=== PATIENT | female | born 1970 | race African-American/Black ===

== ENCOUNTER 2018-11-24 08:34 | Inpatient (IN) | payer OTHER ==
[2018-11-24 09:14] VITALS: BMI 28.8
--- NOTE | 2018-11-24 09:48 | HP ---
CIWA Score Nausea/Vomitin-Mild Nausea/No Vomiting Muscle Tremors: 2 Anxiety: 1-Mildly Anxious Agitation: 0-Normal Activity Paroxysmal Sweats: No Perspiration Orientation: 0-Oriented Tacttile Disturbances: 0-None Auditory Disturbances: 0-None Visual Disturbances: 0-None Headache: 4-Moderately Severe CIWA-Ar Total Score: 8 - Admission Criteria OASAS Guidelines: Admission for Medically Managed Detox: Requires at least one of the followin. CIWA greater than 12 2. Seizures within the past 24 hours 3. Delirium tremens within the past 24 hours 4. Hallucinations within the past 24 hours 5. Acute intervention needed for co occurring medical disorder 6. Acute intervention needed for co occurring psychiatric disorder 7. Severe withdrawal that cannot be handled at a lower level of care (continued vomiting, continued diarrhea, abnormal vital signs) requiring intravenous medication and/or fluids 8. Admission ROS [facility] Chief Complaint: seeking detox from alcohol and cocaine Allergies/Adverse Reactions: Allergies Allergy/AdvReac Type Severity Reaction Status Date / Time No Known Allergies Allergy Verified 12/18/15 15:34 History of Present Illness: 48 y/o/f here seeking help for alcohol and cocaine use. She was last in rehab in October 2015 and states she was able to stay clean for 6 months before relapsing. She drinks 6 cans of beer daily throughout her day. Her last drink was this morning before arriving here. She uses 30 dollars of cocaine per week and uses it by smoking it. She has been smoking a pack a day for 29 years. She denies any heroin or other illicit drug use. She is currently unemployed and living with a friend who gives her money for cocaine and alcohol. She denies any significant medical history or past surgical history. She states was taking Seroquel to help her sleep but has not used it in the past few months. She states she would like to complete detox here and stay for rehab as well. She denies any history of seizures or blackouts. - Ebola screening Have you traveled outside of the country in the last 21 days: No (N) Have you had contact with anyone from an Ebola affected area: No Do you have a fever: No - Review of Systems EENT: reports: No Symptoms Reported Respiratory: reports: No Symptoms reported Cardiac: reports: No Symptoms Reported GI: reports: Nausea : reports: No Symptoms Reported Musculoskeletal: reports: Back Pain Integumentary: reports: No Symptoms Reported Neuro: reports: Headache Endocrine: reports: No Symptoms Reported Hematology: reports: No Symptoms Reported Psychiatric: reports: No Sypmtoms Reported Patient History - Patient Medical History Hx Anemia: No Hx Asthma: No Hx Chronic Obstructive Pulmonary Disease (COPD): No Hx Cancer: No Hx Cardiac Disorders: No Hx Congestive Heart Failure: No Hx Hypertension: No Hx Hypercholesterolemia: No Hx Pacemaker: No HX Cerebrovascular Accident: No Hx Seizures: No Hx Dementia: No Hx Diabetes: No Hx Gastrointestinal Disorders: No Hx Liver Disease: No Hx Genitourinary Disorders: No Hx Sexually Transmitted Disorders: No Hx Renal Disease (ESRD): No Hx Thyroid Disease: No Hx Human Immunodeficiency Virus (HIV): No (LAST 2014 NEGATIVE) Hx Hepatitis C: No Hx Depression: Yes (INSOMNIA) Hx Suicide Attempt: No Hx Bipolar Disorder: No Hx Schizophrenia: No - Patient Surgical History Past Surgical History: No Hx Neurologic Surgery: No Hx Cataract Extraction: No Hx Cardiac Surgery: No Hx Lung Surgery: No Hx Breast Surgery: No Hx Breast Biopsy: No Hx Abdominal Surgery: No Hx Appendectomy: No Hx Cholecystectomy: No Hx Genitourinary Surgery: No Hx Section: No Hx Orthopedic Surgery: No Anesthesia Reaction: No - PPD History Previous Implant?: Yes Documented Results: Positive w/o proof Date: 04/23/18 - Reproductive History Patient is a Female of Child Bearing Age (11 -55 yrs old): Yes Last Menstrual Period: 12/07/15 - Smoking Cessation Smoking history: Current every day smoker Have you smoked in the past 12 months: Yes Aproximately how many cigarettes per day: 20 Cigars Per Day: 0 Hx Chewing Tobacco Use: No Initiated information on smoking cessation: Yes 'Breaking Loose' booklet given: 11/24/18 - Substance & Tx. History Hx Alcohol Use: Yes Hx Substance Use: Yes Substance Use Type: Alcohol, Cocaine - Substances abused Alcohol Substance route: Oral Frequency: Daily Amount used: 6 cans of beer Age of first use: 19 Date of last use: 11/24/18 Crack Substance route: Smoking Frequency: 1-2 times per week Amount used: $30 Age of first use: 19 Date of last use: 11/23/18 Family Disease History - Family Disease History Family History: Denies Admission Physical Exam BHS - Vital Signs Vital Signs: Vital Signs - 24 hr 11/24/18 09:06 Temperature 97.4 F L Pulse Rate 92 H Respiratory 18 Rate Blood Pressure 113/79 - Physical General Appearance: Yes: Disheveled, Other (somnolent) HEENTM: Yes: EOMI, Normocephalic Respiratory: Yes: Lungs Clear, Normal Breath Sounds Neck: Yes: Supple Cardiology: Yes: Regular Rate, S1, S2, Systolic Murmur Abdominal: Yes: Normal Bowel Sounds, Non Tender, Soft Back: Yes: Vertebral Tenderness (mild midline tenderness to palpation L3-L5) Musculoskeletal: Yes: full range of Motion, Gait Steady Extremities: Yes: Normal Capillary Refill Neurological: Yes: lead welder II-XII NML intact, Fully Oriented, Motor Strength 5/5, Finger to Nose Integumentary: Yes: Dry Lymphatic: Yes: Within Normal Limits Cleared for Admission S - Detox or Rehab [facility] Level of Care: Medically Supervised 2Day Detox Regimen/Protocol: Valium Claeared for Rehab Admission: No Breathalyzer - Breathalyzer Breathalyzer: 0 Urine Drug Screen - Test Device Lot number: [id number] Expiration date: 07/21/20 - Control Is test valid?: Yes - Results Drug screen NEGATIVE: No Urine drug screen results: [facility]-Cocaine Inpatient Rehab Admission - Rehab Decision to Admit Inpatient rehab admission?: No
[2018-11-24] MEDS ORDERED: MAGNESIUM CITRATE 300 ML BOTTLE PO PRN (10:05)
[2018-11-24] MEDS ORDERED: diazePAM 5 MG TABLET PO PRN (10:05)
[2018-11-24] MEDS ORDERED: hydrOXYzine PAMOATE 25 MG CAPSULE (FP) PO PRN (10:05)
[2018-11-24] MEDS ORDERED: IBUPROFEN 400 MG TABLET (FP) PO PRN (10:05)
[2018-11-24] MEDS ORDERED: MENTHOL/PHENOL 1 EACH UD MM PRN (10:05)
[2018-11-24] MEDS ORDERED: MAG HYDROX/AL HYDROX/SIMETH 30 ML UNIT-DOSE CUP PO PRN (10:05)
[2018-11-24] MEDS ORDERED: BISMUTH SUBSALICYLATE 524 MG/30 ML UD PO PRN (10:05)
[2018-11-24] MEDS ORDERED: ACETAMINOPHEN 325 MG TABLET (FP) PO PRN (10:05)
[2018-11-24] MEDS ORDERED: MAGNESIUM HYDROX 2400MG/30ML ORAL SUSPENSION 30 ML CUP PO PRN (10:05)
--- NOTE | 2018-11-24 10:20 | PN ---
S Progress Note Note: pt here requesting detox from etoh use , claims 6 x 22 oz cans of beer daily x 5 d/week , reports tremors if not drinking , reports she starts drinking in the afternoons , current symptoms as above . cocaine use - 30 $ /week via inhalation , denies ivdu tobacco : 1 ppd ,requesting nrt w/ patch . a/p etoh abuse - Valium detox .
[2018-11-24] MEDS: NICOTINE 14 MG/24 HOURS TOPICAL PATCH TD SCH (11:00)
[2018-11-24] MEDS: ACETAMINOPHEN 325 MG TABLET (FP) PO PRN (12:07)
[2018-11-24 13:02] LABS: HEMATOCRIT 38.6 % (32.4-45.2); HEMOGLOBIN 12.3 GM/dL (10.7-15.3); MCH 27.3 pg (25.7-33.7); MEAN CELL VOLUME 85.5 fl (80-96); MEAN PLT VOLUME 7.3 fl (7.5-11.1); RBC 4.51 M/mm3 (3.60-5.2); RDW 14.9 % (11.6-15.6); WHITE BLOOD COUNT 5.2 K/mm3 (4.0-10.0)
[2018-11-24 13:08] LABS: ALBUMIN 3.5 g/dl (3.4-5.0); BILIRUBIN,TOTAL 0.3 mg/dL (0.2-1); BLOOD UREA NITROGEN 10.4 mg/dL (7-18); CALCIUM 8.3 mg/dL (8.5-10.1); CREATININE 0.8 mg/dL (0.55-1.3); POTASSIUM 3.5 mmol/L (3.5-5.1); TOT PROT 6.8 g/dl (6.4-8.2)
[2018-11-24 13:27] LABS: PLATELET COUNT 305 K/MM3 (134-434)
[2018-11-24] MEDS: diazePAM 5 MG TABLET PO SCH ×2 (14:00→22:24)
[2018-11-24] MEDS: THIAMINE HCL 100 MG TABLET (FP) PO SCH (22:24)
[2018-11-24] MEDS: MELATONIN 5 MG TABLETS PO PRN (22:24)
[2018-11-25] MEDS: diazePAM 5 MG TABLET PO SCH ×3 (05:14→22:27)
--- NOTE | 2018-11-25 10:52 | PN ---
S CIWA - CIWA Score Nausea/Vomitin Muscle Tremors: 2 Anxiety: 2 Agitation: 2 Paroxysmal Sweats: 1-Minimal Palms Moist Orientation: 0-Oriented Tacttile Disturbances: 1-Very Mild Itch/Numbness Auditory Disturbances: 1-Very Mild Visual Disturbances: 0-None Headache: 2-Mild CIWA-Ar Total Score: 13 BHS Progress Note (SOAP) Subjective: alert,irritable,anxious,interrupted sleep,interrupted sleep Objective: 11/25/18 10:48 Last Vital Signs Temp Pulse Resp BP Pulse Ox 97.2 F L 82 18 124/80 11/25/18 06:21 11/25/18 06:21 11/25/18 06:21 11/25/18 06:21 11/25/18 10:49 Laboratory Last Values WBC 5.2 K/mm3 (4.0-10.0) 11/24/18 10:30 RBC 4.51 M/mm3 (3.60-5.2) 11/24/18 10:30 Hgb 12.3 GM/dL (10.7-15.3) 11/24/18 10:30 Hct 38.6 % (32.4-45.2) 11/24/18 10:30 MCV 85.5 fl (80-96) 11/24/18 10:30 MCH 27.3 pg (25.7-33.7) 11/24/18 10:30 MCHC 32.0 g/dl (32.0-36.0) 11/24/18 10:30 RDW 14.9 % (11.6-15.6) 11/24/18 10:30 Plt Count 305 K/MM3 (134-434) 11/24/18 10:30 MPV 7.3 fl (7.5-11.1) L 11/24/18 10:30 Sodium 141 mmol/L (136-145) 11/24/18 10:30 Potassium 3.5 mmol/L (3.5-5.1) 11/24/18 10:30 Chloride 108 mmol/L (98-107) H 11/24/18 10:30 Carbon Dioxide 29 mmol/L (21-32) 11/24/18 10:30 Anion Gap 5 MMOL/L (8-16) L 11/24/18 10:30 BUN 10.4 mg/dL (7-18) 11/24/18 10:30 Creatinine 0.8 mg/dL (0.55-1.3) 11/24/18 10:30 Est GFR (CKD-EPI)AfAm 101.75 11/24/18 10:30 Est GFR (CKD-EPI)NonAf 87.79 11/24/18 10:30 Random Glucose 120 mg/dL (74-106) H 11/24/18 10:30 Calcium 8.3 mg/dL (8.5-10.1) L 11/24/18 10:30 Total Bilirubin 0.3 mg/dL (0.2-1) 11/24/18 10:30 AST 9 U/L (15-37) L 11/24/18 10:30 ALT 19 U/L (13-61) 11/24/18 10:30 Alkaline Phosphatase 64 U/L (45-117) 11/24/18 10:30 Total Protein 6.8 g/dl (6.4-8.2) 11/24/18 10:30 Albumin 3.5 g/dl (3.4-5.0) 11/24/18 10:30 POC Urine HCG, Qual Negative 11/24/18 09:28 RPR Titer Nonreactive (NONREACTIVE) 11/24/18 10:30 HIV 1&2 Antibody Screen Negative 11/24/18 10:30 HIV P24 Antigen Negative 11/24/18 10:30 Assessment: 11/25/18 10:51 withdrawal symptom Plan: continue detox,initial glucose is 120,fasting glucose in am
[2018-11-25] MEDS: NICOTINE 14 MG/24 HOURS TOPICAL PATCH TD SCH (10:57)
[2018-11-25] MEDS: PRENATAL VITAMINS W/ FOLIC ACID TABLET (FP) PO SCH (10:57)
[2018-11-25] MEDS: ACETAMINOPHEN 325 MG TABLET (FP) PO PRN ×2 (11:00→22:27)
[2018-11-25] MEDS: THIAMINE HCL 100 MG TABLET (FP) PO SCH (22:27)
[2018-11-25] MEDS: MELATONIN 5 MG TABLETS PO PRN (22:27)
[2018-11-26] MEDS: diazePAM 5 MG TABLET PO SCH ×2 (06:01→17:09)
[2018-11-26] MEDS: ACETAMINOPHEN 325 MG TABLET (FP) PO PRN (06:02)
--- NOTE | 2018-11-26 09:52 | PN ---
S CIWA - CIWA Score Nausea/Vomitin-No Nausea/No Vomiting Muscle Tremors: None Anxiety: 2 Agitation: 0-Normal Activity Paroxysmal Sweats: 3 Orientation: 0-Oriented Tacttile Disturbances: 0-None Auditory Disturbances: 0-None Visual Disturbances: 0-None Headache: 2-Mild CIWA-Ar Total Score: 7 S Progress Note (SOAP) Subjective: c/o sweats, headache, and anxiety. Objective: 11/26/18 09:50 Vital Signs 11/26/18 11/26/18 11/26/18 03:30 07:40 09:12 Temperature 97.5 F L 96.8 F L Pulse Rate 84 84 Respiratory 18 18 18 Rate Blood Pressure 112/70 131/83 Lab Results WBC 5.2 K/mm3 (4.0-10.0) 11/24/18 10:30 RBC 4.51 M/mm3 (3.60-5.2) 11/24/18 10:30 Hgb 12.3 GM/dL (10.7-15.3) 11/24/18 10:30 Hct 38.6 % (32.4-45.2) 11/24/18 10:30 MCV 85.5 fl (80-96) 11/24/18 10:30 MCHC 32.0 g/dl (32.0-36.0) 11/24/18 10:30 RDW 14.9 % (11.6-15.6) 11/24/18 10:30 Plt Count 305 K/MM3 (134-434) 11/24/18 10:30 Sodium 141 mmol/L (136-145) 11/24/18 10:30 Potassium 3.5 mmol/L (3.5-5.1) 11/24/18 10:30 Chloride 108 mmol/L (98-107) H 11/24/18 10:30 Carbon Dioxide 29 mmol/L (21-32) 11/24/18 10:30 Anion Gap 5 MMOL/L (8-16) L 11/24/18 10:30 BUN 10.4 mg/dL (7-18) 11/24/18 10:30 Creatinine 0.8 mg/dL (0.55-1.3) 11/24/18 10:30 Random Glucose 120 mg/dL (74-106) H 11/24/18 10:30 Calcium 8.3 mg/dL (8.5-10.1) L 11/24/18 10:30 Labs noted. Assessment: 11/26/18 09:50 AOX3, in no acute respiratory distress. Full ROM, ambulating in the unit. Mild withdrawal symptoms Plan: continue detox. increase fluids.
[2018-11-26] MEDS: NICOTINE 14 MG/24 HOURS TOPICAL PATCH TD SCH (10:27)
[2018-11-26] MEDS: PRENATAL VITAMINS W/ FOLIC ACID TABLET (FP) PO SCH (10:27)
[2018-11-26] MEDS: MELATONIN 5 MG TABLETS PO PRN (22:53)
[2018-11-26] MEDS: THIAMINE HCL 100 MG TABLET (FP) PO SCH (22:53)
[2018-11-27] MEDS ORDERED: diazePAM 5 MG TABLET PO ONE (06:00)
[2018-11-27 09:10] VITALS: BP 150/100; PULSE 91; TEMP 98.2
[2018-11-27] MEDS: NICOTINE 14 MG/24 HOURS TOPICAL PATCH TD SCH (10:08)
[2018-11-27] MEDS: PRENATAL VITAMINS W/ FOLIC ACID TABLET (FP) PO SCH (10:08)
--- NOTE | 2018-11-27 13:46 | DS ---
[facility] Detox Discharge Summary Admission Date: 11/24/18 Discharge Date: 11/27/18 - History Present History: Alcohol Dependence, Cocaine Dependence Additional Comments: PATIENT GOING TO [facility] ([facility]) FOR AFTERCARE. PATIENT WAS DISCHARGED FROM DETOX UNIT TO BE TAKEN OVER TO REHAB UNIT IN STABLE MEDICAL CONDITION. Pertinent Past History: Depression, Insomnia, Nicotine Dependence. - Physical Exam Results Vital Signs: Vital Signs Temperature 98.2 F 11/27/18 09:09 Pulse Rate 91 H 11/27/18 09:09 Respiratory Rate 14 11/27/18 09:09 Blood Pressure 150/100 11/27/18 09:09 O2 Sat by Pulse Oximetry (%) Pertinent Admission Physical Exam Findings: WITHDRAWAL SYMPTOMS. Laboratory Tests 11/24/18 11/24/18 11/24/18 09:28 10:30 10:30 WBC 5.2 RBC 4.51 Hgb 12.3 Hct 38.6 MCV 85.5 MCH 27.3 MCHC 32.0 RDW 14.9 Plt Count 305 MPV 7.3 L Sodium 141 Potassium 3.5 Chloride 108 H Carbon Dioxide 29 Anion Gap 5 L BUN 10.4 Creatinine 0.8 Est GFR (CKD-EPI)AfAm 101.75 Est GFR (CKD-EPI)NonAf 87.79 Random Glucose 120 H Fasting Glucose Calcium 8.3 L Total Bilirubin 0.3 AST 9 L ALT 19 Alkaline Phosphatase 64 Total Protein 6.8 Albumin 3.5 POC Urine HCG, Qual Negative RPR Titer HIV 1&2 Antibody Screen HIV P24 Antigen 11/24/18 11/24/18 11/26/18 10:30 10:30 08:00 WBC RBC Hgb Hct MCV MCH MCHC RDW Plt Count MPV Sodium Potassium Chloride Carbon Dioxide Anion Gap BUN Creatinine Est GFR (CKD-EPI)AfAm Est GFR (CKD-EPI)NonAf Random Glucose Fasting Glucose 118 H Calcium Total Bilirubin AST ALT Alkaline Phosphatase Total Protein Albumin POC Urine HCG, Qual RPR Titer Nonreactive HIV 1&2 Antibody Screen Negative HIV P24 Antigen Negative LABS NOTED. - Treatment Hospital Course: Detox Protocol Followed, Detoxed Safely, Responded well, Discharged Condition Good, Rehab Referral Accepted Patient has Accepted a Rehab Referral to: [facility] ([facility] - Medication Discharge Medications: Ambulatory Orders NK [No Known Home Medication] 11/24/18 - Diagnosis (1) Cocaine dependence, uncomplicated Current Visit: Yes Status: Acute (2) Alcohol dependence with uncomplicated withdrawal Current Visit: Yes Status: Acute (3) Nicotine dependence Current Visit: Yes Status: Chronic Qualifiers: Nicotine product type: cigarettes Substance use status: uncomplicated Qualified Code(s): F17.210 - Nicotine dependence, cigarettes, uncomplicated - AMA Did Patient Leave Against Medical Advice: No
== END 2018-11-27 12:15 | disposition other institution (70) | DRG 774 ==
LOC: YASAS 08:34 → Y6N 10:19
PROVIDERS: ADMIT Surgery; ATTEND Surgery
PROC: HZ2ZZZZ Detoxification Services for Substance Abuse Treatment (ICD-10-PCS; principal; 2018-11-24)
DX: F10.230 Alcohol dependence with withdrawal, uncomplicated (principal); F14.20 Cocaine dependence, uncomplicated; F17.210 Nicotine dependence, cigarettes, uncomplicated; F32.9 Major depressive disorder, single episode, unspecified; G47.00 Insomnia, unspecified
CPT/HCPCS: 36415; 71046-TC-FY; 80053; 81025; 82947; 85027; 86593; 87389

== ENCOUNTER 2018-11-27 11:07 | Inpatient (IN) | payer OTHER ==
[2018-11-27] MEDS ORDERED: MAGNESIUM CITRATE 300 ML BOTTLE PO PRN (13:47)
[2018-11-27] MEDS ORDERED: MAGNESIUM HYDROX 2400MG/30ML ORAL SUSPENSION 30 ML CUP PO PRN (13:47)
[2018-11-27] MEDS ORDERED: ACETAMINOPHEN 325 MG TABLET (FP) PO PRN (13:47)
[2018-11-27] MEDS ORDERED: MENTHOL/PHENOL 1 EACH UD MM PRN (13:47)
[2018-11-27] MEDS ORDERED: guaiFENesin 200 MG/10 ML 10 ML UNIT-DOSE CUPS PO PRN (13:47)
[2018-11-27] MEDS ORDERED: P-EPHED 60MG/TRIPROLIDI 2.5MG TABLET PO PRN (13:47)
[2018-11-27] MEDS ORDERED: LOPERAMIDE HCL 2 MG CAPSULE PO PRN (13:47)
--- NOTE | 2018-11-27 13:52 | HP ---
[facility] Rehab Assess/Revision - Admission History Admitted to Rehab from: [facility] Date of Admission to Rehab: 11/27/2018 - Vital signs Vital Signs: Vital Signs Period Temp Pulse Resp BP Sys/Metcalf Pulse Ox Last 24 Hr 97.7 F 87 18 121/79 - Findings Detox History & Physical reviewed: Yes Concur with findings: Yes Comments/Additional Findings: PATIENT'S MEDICAL / MEDICATION HISTORY REVIEWED PRIOR TO DISCHARGE FROM DETOX UNIT. BGM ACBK X READINGS ORDERED FOR FIRST THREE DAYS OF REHAB ADMISSION STAY FOR ELEVATED ADMISSION RANDOM GLUCOSE AND FOR SUBSEQUENT FASTINB GLUCOSE LEVELS NOTED WHILE PATIENT WAS ADMITTED FOR DETOX. PATIENT WAS DISCHARGED FROM DETOX UNIT TO BE TAKEN OVER TO REHAB UNIT IN STABLE MEDICAL CONDITION. Inpatient Rehab Admission - Rehab Decision to Admit Inpatient rehab admission?: Yes - Initial Determination Are CD services needed?: Yes Free of communicable disease: Yes Not in need of hospitalization: Yes - Rehab Admission Criteria Previous failed treatment: Yes Poor recovery environment: Yes Comorbidities: No Lacks judgement: No Patient is meeting Inpatient Rehab admission criteria:: Yes
[2018-11-27] MEDS: THIAMINE HCL 100 MG TABLET (FP) PO SCH (21:30)
[2018-11-27] MEDS: MELATONIN 5 MG TABLETS PO PRN (21:30)
[2018-11-28] MEDS: PRENATAL VITAMINS W/ FOLIC ACID TABLET (FP) PO SCH (09:40)
[2018-11-28] MEDS: NICOTINE 14 MG/24 HOURS TOPICAL PATCH TD SCH (09:41)
[2018-11-28] MEDS ORDERED: PT OWN MED DRAWER 7, Y5N ONE (09:49)
[2018-11-28] MEDS: MAG HYDROX/AL HYDROX/SIMETH 30 ML UNIT-DOSE CUP PO PRN (17:02)
[2018-11-28] MEDS: THIAMINE HCL 100 MG TABLET (FP) PO SCH (21:24)
[2018-11-28] MEDS: MELATONIN 5 MG TABLETS PO PRN (21:24)
[2018-11-29] MEDS: NICOTINE 14 MG/24 HOURS TOPICAL PATCH TD SCH (09:42)
[2018-11-29] MEDS: PRENATAL VITAMINS W/ FOLIC ACID TABLET (FP) PO SCH (09:42)
[2018-11-29] MEDS: MAG HYDROX/AL HYDROX/SIMETH 30 ML UNIT-DOSE CUP PO PRN (19:16)
[2018-11-29] MEDS: THIAMINE HCL 100 MG TABLET (FP) PO SCH (21:25)
[2018-11-29] MEDS: MELATONIN 5 MG TABLETS PO PRN (21:25)
[2018-11-29] MEDS ORDERED: PT OWN MED DRAWER 7, Y5N ONE (23:51)
[2018-11-30] MEDS: NICOTINE 14 MG/24 HOURS TOPICAL PATCH TD SCH (09:59)
[2018-11-30] MEDS: PRENATAL VITAMINS W/ FOLIC ACID TABLET (FP) PO SCH (09:59)
[2018-11-30] MEDS: MAG HYDROX/AL HYDROX/SIMETH 30 ML UNIT-DOSE CUP PO PRN (18:09)
[2018-11-30] MEDS: THIAMINE HCL 100 MG TABLET (FP) PO SCH (21:11)
[2018-11-30] MEDS: MELATONIN 5 MG TABLETS PO PRN (21:13)
[2018-12-01] MEDS: PRENATAL VITAMINS W/ FOLIC ACID TABLET (FP) PO SCH (09:08)
[2018-12-01] MEDS: NICOTINE 14 MG/24 HOURS TOPICAL PATCH TD SCH (09:09)
--- NOTE | 2018-12-01 12:04 | CONSULT ---
[facility] Psychiatric Consult - Data Date of interview: 12/01/18 Admission source: 6N Identifying data: Ms Mcnair is a 48 years old single Black female, unemployed receiving SSI, domiciled seeking rehab treatment for alcohol and cocaine Substance Abuse History: Reports history of alcohol and crack cocaine use. Refer to addiction counselor's summary for further information Medical History: Significant for bronchial asthma and history of PPD+ . Smokes cigarettes 1 ppd Psychiatric History: Reports first psychiatric contact was in 2009 when she was admitted to [facility] due to severe depression, mood instability, auditory hallucinations in the context of substance use. She was diagnosed with Schizoaffective disorder and tried on Seroquel and Risperidone. She reports [address] [facility] and mostly recently in 2011 at [facility] for auditory hallucinations and paranoid delusions. She currently receives outpatient psychiatric tretment via [facility] team and she is prescribed Invega Sustena 234 mg IM on a monthly injection. RN Pamela Hall left a voice message to patient's counselor on this unit that patient was past due to receive the medication(due on 11/23/18). Denies previous suicidal atempt. At present, denies experiencing psychotic, manic symptoms, S/H ideations. Hwever , she reports feeling sad and sleeing poorly. Physical/Sexual Abuse/Trauma History: Denies history of emotional, physical or sexual abuse as well as DV relationship Additional Comment: Denies criminal history Mental Status Exam - Mental Status Exam Alert and Oriented to: Time, Place, Person Cognitive Function: Fair Patient Appearance: Well Groomed Mood: Sad Affect: Appropriate Patient Behavior: Cooperative Voice Loudness: Normal Thought Process: Intact, Goal Oriented Hallucinations: Denies Suicidal Ideation: Denies Homicidal Ideation: Denies Insight/Judgement: Poor Sleep: Poorly Appetite: Good Muscle strength/Tone: Normal Gait/Station: Normal Psychiatric Findings - Problem List ([place] 1, 2,3) (1) Schizoaffective disorder Current Visit: No Status: Chronic (2) Substance-induced sleep disorder Current Visit: Yes Status: Acute (3) Alcohol dependence Current Visit: No Status: Chronic (4) Cocaine dependence Current Visit: No Status: Chronic (5) Nicotine dependence Current Visit: No Status: Chronic Qualifiers: Nicotine product type: cigarettes Substance use status: uncomplicated Qualified Code(s): F17.210 - Nicotine dependence, cigarettes, uncomplicated (6) Positive PPD Current Visit: No Status: Resolved - Initial Treatment Plan Initial Treatment Plan: 1) Pamela Hall, ACT team RN [phone] and left message that Invwilliam anguianoena is not formulary in this facility and the only way for patient to receive it is for ACT team to bring it. in the mean time, patient will be started on Risperdal 2 mg po BID. 2) Continue inpatient rehabilitation
[2018-12-01] MEDS: MAG HYDROX/AL HYDROX/SIMETH 30 ML UNIT-DOSE CUP PO PRN (19:07)
[2018-12-01] MEDS: THIAMINE HCL 100 MG TABLET (FP) PO SCH (21:46)
[2018-12-01] MEDS: risperiDONE 2 MG TABLET PO SCH (21:46)
[2018-12-01] MEDS ORDERED: MELATONIN 5 MG TABLETS PO SCH (22:00)
[2018-12-01] MEDS ORDERED: PT OWN MED DRAWER 7, Y5N ONE (22:10)
[2018-12-02 07:16] VITALS: BP 102/71; PULSE 99; TEMP 98.3
--- NOTE | 2018-12-02 08:22 | PN ---
[facility] Progress Note Note: Talked to Pamela Hall RN nursing staff on patient's ACT team regarding Invega Sustena injection which was due on 11/23/18. She told job specification writer that she will be able to bring the injection on Wednesday12/05/18.
[2018-12-02] MEDS: NICOTINE 14 MG/24 HOURS TOPICAL PATCH TD SCH (10:27)
[2018-12-02] MEDS: risperiDONE 2 MG TABLET PO SCH (10:27)
[2018-12-02] MEDS: PRENATAL VITAMINS W/ FOLIC ACID TABLET (FP) PO SCH (10:27)
--- NOTE | 2018-12-02 16:01 | PN ---
[facility] Progress Note Note: Patient seen for request to sign out AMA. Patient admitted to rehab for ETOH/ cocaine dependence. Patient stated to provider " I want to go home. I've had enough". Patient encouraged to complete rehab and explained risk factors of relapse and possible overdose. Patient refused to stay in treatment and stated she will follow up with [facility] for outpatient treatment referral. Patient is alert and medically stable. Denies SI/HI. Patient encouraged to attend group meetings at AA/NA. Vital Signs Temperature 98.3 F 12/02/18 07:16 Pulse Rate 99 H 12/02/18 07:16 Respiratory Rate 18 12/02/18 07:16 Blood Pressure 102/71 12/02/18 07:16 O2 Sat by Pulse Oximetry (%) Laboratory Tests 11/28/18 11/29/18 11/30/18 06:42 06:18 07:32 POC Glucometer 116 137 105 12/01/18 12/02/18 06:32 07:07 POC Glucometer 108 105 Ambulatory Orders NK [No Known Home Medication] 11/24/18
== END 2018-12-02 14:22 | disposition left against medical advice (07) | DRG 770 ==
LOC: YASAS 11:07 → Y3E 11:08
PROVIDERS: ADMIT Neuromusculoskeletal Medicine & OMM; ATTEND Neuromusculoskeletal Medicine & OMM
PROC: HZ42ZZZ Group Counseling for Substance Abuse Treatment, Cognitive-Behavioral (ICD-10-PCS; principal; 2018-11-27)
DX: F10.20 Alcohol dependence, uncomplicated (principal); F14.20 Cocaine dependence, uncomplicated; F17.210 Nicotine dependence, cigarettes, uncomplicated; F19.282 Other psychoactive substance dependence with psychoactive substance-induced sleep disorder; F25.9 Schizoaffective disorder, unspecified; R76.11 Nonspecific reaction to tuberculin skin test without active tuberculosis
CPT/HCPCS: 82962

== ENCOUNTER 2019-05-31 14:06 | Inpatient (IN) | payer OTHER ==
[2019-05-31 17:58] VITALS: BMI 31.9
--- NOTE | 2019-05-31 20:42 | HP ---
CIWA Score Nausea/Vomitin-Mild Nausea/No Vomiting Muscle Tremors: 3 Anxiety: 3 Agitation: 3 Paroxysmal Sweats: 2 Orientation: 0-Oriented Tacttile Disturbances: 0-None Auditory Disturbances: 0-None Visual Disturbances: 0-None Headache: 5-Severe CIWA-Ar Total Score: 17 - Admission Criteria OASAS Guidelines: Admission for Medically Managed Detox: Requires at least one of the followin. CIWA greater than 12 2. Seizures within the past 24 hours 3. Delirium tremens within the past 24 hours 4. Hallucinations within the past 24 hours 5. Acute intervention needed for co occurring medical disorder 6. Acute intervention needed for co occurring psychiatric disorder 7. Severe withdrawal that cannot be handled at a lower level of care (continued vomiting, continued diarrhea, abnormal vital signs) requiring intravenous medication and/or fluids 8. Admitting History and Physical - Past Medical History ...LMP: 06/06/16 - Smoking History Smoking history: Current every day smoker Have you smoked in the past 12 months: Yes Aproximately how many cigarettes per day: 20 - Alcohol/Substance Use Hx Alcohol Use: Yes Admission ROS [facility] Chief Complaint: Alcohol withdrawal symptoms Allergies/Adverse Reactions: Allergies Allergy/AdvReac Type Severity Reaction Status Date / Time No Known Allergies Allergy Verified 05/31/19 17:42 History of Present Illness: 48 years old female with a long history of alcohol dependence (since age 19) is seeking admission to detox. Patient has been admitted multiple times and reports insignificant period of sobriety. Her last admission at [facility] was for the period 11/24/2018 - 12/02/2018. She has medical history of asthma, chronic back pain, PPD positive and reports psych. history of schizophrenia, depression and anxiety. She denies suicidal ideation at this time. Patient is unemployed and lives at [facility] in [facility]. She denies seizures and blackouts. Exam Limitations: No Limitations - Ebola screening Have you traveled outside of the country in the last 21 days: No (N) Have you had contact with anyone from an Ebola affected area: No Do you have a fever: No - Review of Systems Constitutional: Chills, Malaise, Night Sweats, Changes in sleep EENT: reports: No Symptoms Reported Respiratory: reports: No Symptoms reported Cardiac: reports: No Symptoms Reported GI: reports: Constipated, Nausea, Poor Appetite, Poor Fluid Intake, Vomiting, Abdominal cramping : reports: No Symptoms Reported Musculoskeletal: reports: Back Pain, Joint Pain, Muscle Pain Integumentary: reports: Dryness, Flushing Neuro: reports: Headache Endocrine: reports: Flushing Hematology: reports: No Symptoms Reported Psychiatric: reports: Mood/Affect Appropiate, Orientated x3, Anxious, Depressed Other Systems: Reviewed and Negative Patient History - Patient Medical History Hx Anemia: No Hx Asthma: Yes (Albuterol) Hx Chronic Obstructive Pulmonary Disease (COPD): No Hx Cancer: No Hx Cardiac Disorders: No Hx Congestive Heart Failure: No Hx Hypertension: No Hx Hypercholesterolemia: No Hx Pacemaker: No HX Cerebrovascular Accident: No Hx Seizures: No Hx Dementia: No Hx Diabetes: No Hx Gastrointestinal Disorders: No Hx Liver Disease: No Hx Genitourinary Disorders: No Hx Sexually Transmitted Disorders: No Hx Renal Disease (ESRD): No Hx Thyroid Disease: No Hx Human Immunodeficiency Virus (HIV): No ( NEGATIVE 2014 ) Hx Hepatitis C: No Hx Depression: No Hx Suicide Attempt: No (Denies suicidal ideation aty this time) Hx Bipolar Disorder: No Hx Schizophrenia: No Other Medical History: LOW BACK PAIN, ANXIETY - Patient Surgical History Past Surgical History: No Hx Neurologic Surgery: No Hx Cataract Extraction: No Hx Cardiac Surgery: No Hx Lung Surgery: No Hx Breast Surgery: No Hx Breast Biopsy: No Hx Abdominal Surgery: No Hx Appendectomy: No Hx Cholecystectomy: No Hx Genitourinary Surgery: No Hx Section: No Hx Orthopedic Surgery: No Hx Hysterectomy: No Anesthesia Reaction: No - PPD History Previous Implant?: No (PPD POSITIVE. TREATED WITH INH) Documented Results: Positive w/proof Date: 04/23/18 PPD to be Administered?: No - Reproductive History Patient is a Female of Child Bearing Age (11 -55 yrs old): Yes Last Menstrual Period: 06/06/16 - Smoking Cessation Smoking history: Current every day smoker Have you smoked in the past 12 months: Yes Aproximately how many cigarettes per day: 20 Cigars Per Day: 0 Hx Chewing Tobacco Use: No Initiated information on smoking cessation: Yes 'Breaking Loose' booklet given: 05/31/19 - Substance & Tx. History Hx Alcohol Use: Yes Hx Substance Use: Yes Substance Use Type: Alcohol, Cocaine Hx Substance Use Treatment: Yes ([facility]) - Substances abused Alcohol Substance route: Oral Frequency: Daily Amount used: 6 cans of beers Age of first use: 19 Date of last use: 05/31/19 Crack Substance route: Smoking Frequency: 1-2 times per week Amount used: $30 Age of first use: 19 Date of last use: 05/31/19 Admission Physical Exam [facility] - Vital Signs Vital Signs: Vital Signs - 24 hr 05/31/19 17:42 Temperature 97.1 F L Pulse Rate 102 H Respiratory 18 Rate Blood Pressure 124/69 - Physical General Appearance: Yes: Moderate Distress, Tremorous, Anxious HEENTM: Yes: Nasal Congestion Respiratory: Yes: Lungs Clear, Normal Breath Sounds, No Respiratory Distress Neck: Yes: Supple Breast: Yes: Breast Exam Deferred Cardiology: Yes: Tachycardia Abdominal: Yes: Protuberent Genitourinary: Yes: Within Normal Limits Musculoskeletal: Yes: Back pain, Muscle Pain Extremities: Yes: Tremors Neurological: Yes: Alert, Normal Mood/Affect Integumentary: Yes: Warm, Other (dry skin) Lymphatic: Yes: Within Normal Limits - Diagnostic (1) Alcohol dependence with uncomplicated withdrawal Current Visit: Yes Status: Acute (2) Cocaine dependence, uncomplicated Current Visit: Yes Status: Acute (3) Nicotine dependence Current Visit: Yes Status: Chronic Qualifiers: Nicotine product type: cigarettes Substance use status: in withdrawal Qualified Code(s): F17.213 - Nicotine dependence, cigarettes, with withdrawal (4) Obesity Current Visit: Yes Status: Chronic Qualifiers: Obesity classification: adult class 1 (BMI 30 - 34.9) Serious obesity comorbidity presence: without serious comorbidity (5) Positive PPD Current Visit: Yes Status: Resolved Cleared for Admission [facility] - Detox or Rehab [facility] Level of Care: Medically Managed Detox Regimen/Protocol: Librium Breathalyzer - Breathalyzer Breathalyzer: 0 Urine Drug Screen - Test Device Lot number: [id number] Expiration date: 07/21/20 - Control Is test valid?: Yes - Results Drug screen NEGATIVE: No Urine drug screen results: [facility]OM[facility]-Cocaine Inpatient Rehab Admission - Rehab Decision to Admit Inpatient rehab admission?: No
[2019-05-31] MEDS ORDERED: NICOTINE POLACRILEX 2 MG GUM BUC PRN (21:03)
[2019-05-31] MEDS ORDERED: chlordiazePOXIDE HCL 25 MG CAPSULE PO PRN (21:03)
[2019-05-31] MEDS ORDERED: ACETAMINOPHEN 325 MG TABLET (FP) PO PRN ×2 (21:03)
[2019-05-31] MEDS ORDERED: hydrOXYzine PAMOATE 25 MG CAPSULE (FP) PO PRN (21:03)
[2019-05-31] MEDS ORDERED: MAGNESIUM CITRATE 300 ML BOTTLE PO PRN (21:03)
[2019-05-31] MEDS ORDERED: METHOCARBAMOL 500 MG TABLET PO PRN (21:03)
[2019-05-31] MEDS ORDERED: MAG HYDROX/AL HYDROX/SIMETH 30 ML UNIT-DOSE CUP PO PRN (21:03)
[2019-05-31] MEDS ORDERED: MAGNESIUM HYDROX 2400MG/30ML ORAL SUSPENSION 30 ML CUP PO PRN (21:03)
[2019-05-31] MEDS: chlordiazePOXIDE HCL 25 MG CAPSULE PO SCH (22:37)
[2019-05-31] MEDS: MELATONIN 5 MG TABLETS PO PRN (22:38)
[2019-05-31] MEDS: THIAMINE HCL 100 MG TABLET (FP) PO SCH (22:38)
[2019-06-01] MEDS: chlordiazePOXIDE HCL 25 MG CAPSULE PO SCH ×4 (06:39→22:02)
[2019-06-01] MEDS: MENTHOL/PHENOL 1 EACH UD MM PRN ×2 (09:06→22:20)
[2019-06-01] MEDS: NICOTINE 21 MG/24 HOURS TOPICAL PATCH TD SCH (10:29)
[2019-06-01] MEDS: PRENATAL VITAMINS W/ FOLIC ACID TABLET (FP) PO SCH (10:30)
[2019-06-01 10:48] LABS: HEMATOCRIT 34.5 % (32.4-45.2); HEMOGLOBIN 10.9 GM/dL (10.7-15.3); MCH 26.8 pg (25.7-33.7); MCHC 31.7 g/dl (32.0-36.0); MEAN CELL VOLUME 84.5 fl (80-96); MEAN PLT VOLUME 7.5 fl (7.5-11.1); PLATELET COUNT 335 K/MM3 (134-434); RBC 4.08 M/mm3 (3.60-5.2); RDW 15.5 % (11.6-15.6); WHITE BLOOD COUNT 4.7 K/mm3 (4.0-10.0)
[2019-06-01 10:58] LABS: BILIRUBIN,TOTAL 0.3 mg/dL (0.2-1); BLOOD UREA NITROGEN 12.9 mg/dL (7-18); CALCIUM 8.4 mg/dL (8.5-10.1); CREATININE 0.6 mg/dL (0.55-1.3); POTASSIUM 4.6 mmol/L (3.5-5.1); TOT PROT 6.1 g/dl (6.4-8.2)
--- NOTE | 2019-06-01 11:13 | PN ---
[facility] CIWA - CIWA Score Nausea/Vomitin-Mild Nausea/No Vomiting Muscle Tremors: 2 Anxiety: 2 Agitation: 0-Normal Activity Paroxysmal Sweats: 2 Orientation: 0-Oriented Tacttile Disturbances: 2-Mild Itch/Numbness/Burn Auditory Disturbances: 0-None Visual Disturbances: 0-None Headache: 1-Very Mild CIWA-Ar Total Score: 10 S Progress Note (SOAP) Subjective: c/o of interrupted sleep, nasal congestion,mid epigastric pain x2 days , reports 1010 relieved with rest Objective: 06/01/19 11:14 Vital Signs Temperature 97.7 F 06/01/19 09:09 Pulse Rate 80 06/01/19 09:09 Respiratory Rate 18 06/01/19 09:09 Blood Pressure 117/69 06/01/19 09:09 O2 Sat by Pulse Oximetry (%) Laboratory Last Values WBC 4.7 K/mm3 (4.0-10.0) 06/01/19 08:15 RBC 4.08 M/mm3 (3.60-5.2) 06/01/19 08:15 Hgb 10.9 GM/dL (10.7-15.3) 06/01/19 08:15 Hct 34.5 % (32.4-45.2) 06/01/19 08:15 MCV 84.5 fl (80-96) 06/01/19 08:15 MCH 26.8 pg (25.7-33.7) 06/01/19 08:15 MCHC 31.7 g/dl (32.0-36.0) L 06/01/19 08:15 RDW 15.5 % (11.6-15.6) 06/01/19 08:15 Plt Count 335 K/MM3 (134-434) 06/01/19 08:15 MPV 7.5 fl (7.5-11.1) 06/01/19 08:15 Sodium 140 mmol/L (136-145) 06/01/19 08:15 Potassium 4.6 mmol/L (3.5-5.1) 06/01/19 08:15 Chloride 107 mmol/L (98-107) 06/01/19 08:15 Carbon Dioxide 29 mmol/L (21-32) 06/01/19 08:15 Anion Gap 4 MMOL/L (8-16) L 06/01/19 08:15 BUN 12.9 mg/dL (7-18) 06/01/19 08:15 Creatinine 0.6 mg/dL (0.55-1.3) 06/01/19 08:15 Est GFR (CKD-EPI)AfAm 125.80 06/01/19 08:15 Est GFR (CKD-EPI)NonAf 108.54 06/01/19 08:15 Random Glucose 111 mg/dL (74-106) H 06/01/19 08:15 Calcium 8.4 mg/dL (8.5-10.1) L 06/01/19 08:15 Total Bilirubin 0.3 mg/dL (0.2-1) 06/01/19 08:15 AST 21 U/L (15-37) 06/01/19 08:15 ALT 25 U/L (13-61) 06/01/19 08:15 Alkaline Phosphatase 57 U/L (45-117) 06/01/19 08:15 Total Protein 6.1 g/dl (6.4-8.2) L 06/01/19 08:15 Albumin 3.0 g/dl (3.4-5.0) L 06/01/19 08:15 Assessment: 06/01/19 11:14 Aox3 no acute distress edentulous, no sinus tenderness s1 s2 , + murmur lungs clear through out no abdominal tenderness no lower extremity edema withdrawal midepigastric pain Plan: EKG ordered : NSR continue detox maylatan for abdominal discomfort continue to monitor for worsening symptoms
[2019-06-01] MEDS ORDERED: guaiFENesin 200 MG/10 ML 10 ML UNIT-DOSE CUPS PO PRN (11:25)
[2019-06-01] MEDS: IBUPROFEN 400 MG TABLET (FP) PO PRN ×2 (11:29→17:19)
--- NOTE | 2019-06-01 11:53 | EKG ---
Test Reason : Blood Pressure : / mmHG Vent. Rate : 078 BPM Atrial Rate : 078 BPM P-R Int : 182 ms QRS Dur : 084 ms QT Int : 410 ms P-R-T Axes : 051 044 049 degrees QTc Int : 467 ms NORMAL SINUS RHYTHM NORMAL ECG WHEN COMPARED WITH ECG OF 31-MAY-2019 23:14, NO SIGNIFICANT CHANGE WAS FOUND Confirmed by YAYA MCNEAL MD ([id number]) on 06/01/2019 11:52:50 AM Referred By: Confirmed By:YAYA MCNEAL MD
--- NOTE | 2019-06-01 11:53 | EKG ---
Test Reason : Blood Pressure : / mmHG Vent. Rate : 090 BPM Atrial Rate : 090 BPM P-R Int : 188 ms QRS Dur : 084 ms QT Int : 404 ms P-R-T Axes : 055 037 058 degrees QTc Int : 494 ms NORMAL SINUS RHYTHM MINIMAL VOLTAGE CRITERIA FOR LVH, MAY BE NORMAL VARIANT NONSPECIFIC T WAVE ABNORMALITY PROLONGED QT ABNORMAL ECG NO PREVIOUS ECGS AVAILABLE Confirmed by YAYA MCNEAL MD ([id number]) on 06/01/2019 11:52:52 AM Referred By: Confirmed By:YAYA MCNEAL MD
--- NOTE | 2019-06-01 14:03 | CONSULT ---
[facility] Psychiatric Consult - Data Date of interview: 06/01/19 Admission source: [facility] Identifying data: Patient is a 48 year old single female, mother of four, unemployed, domiciled, and is supported by [facility]. This is one of multiple admissions for patient. Patient admitted to for alcohol and cocaine dependence. Substance Abuse History: Smoking Cessation. Smoking history: Current every day smoker. Have you smoked in the past 12 months: Yes. Aproximately how many cigarettes per day: 20. Cigars Per Day: 0. Hx Chewing Tobacco Use: No. Initiated information on smoking cessation: Yes. 'Breaking Loose' booklet given : 05/31/19. - Substance & Tx. History. Hx Alcohol Use: Yes. Hx Substance Use : Yes. Substance Use Type: Alcohol, Cocaine. Hx Substance Use Treatment: Yes ( [facility]). - Substances abused. Alcohol. Substance route: Oral. Frequency: Daily. Amount used: 6 cans of beers. Age of first use: 19. Date of last use: 05/31/19. Crack. Substance route: Smoking. Frequency: 1-2 times per week. Amount used: $30. Age of first use: 19. Date of last use: 05/31/19 Medical History: Asthma Psychiatric History: Patient's first psychiatric contact was in 2010 after onset disturbances of paranoid delusions and mood instability. She was admitted to [facility], diagnosed with schizoaffective disorder and started on risperdal. Ms. Mcnair reports additional hospitalizations at [facility] secondary to paranoid delusions. She reports past outpatient treatment while living at [facility]. In 2018 patient was followed by the ACT team and was prescribed Invega Sustenna. States she is no longer followed by the ACT team and is not under psychiatric care. Patient seen by Dr. Gale in November of 2018 and was started on risperdal 2mg BID. Patient states that she has been taking seroquel 300mg HS after receiving a two month prescription from [facility] in March. Reports most recently taking seroquel last week. Patient refusing to restart risperdal despite encouragement from check writer. Patient denies history of suicide attempt. At present patient denies auditory/visual hallucination, and paranoid ideation. No psychosis noted. Physical/Sexual Abuse/Trauma History: Reports history of trauma but refuses to elaborate. Mental Status Exam - Mental Status Exam Alert and Oriented to: Time, Place, Person Cognitive Function: Good Patient Appearance: Well Groomed Mood: Withdrawn Affect: Appropriate Patient Behavior: Appropriate, Cooperative Speech Pattern: Appropriate Voice Loudness: Normal Thought Process: Goal Oriented Thought Disorder: Not Present Hallucinations: Denies Suicidal Ideation: Denies Homicidal Ideation: Denies Insight/Judgement: Poor Sleep: Poorly Appetite: Fair Muscle strength/Tone: Normal Gait/Station: Normal Psychiatric Findings - Problem List ([place] 1, 2,3) (1) Alcohol dependence with uncomplicated withdrawal Status: Acute (2) Cocaine dependence, uncomplicated Status: Acute (3) Nicotine dependence Status: Chronic Qualifiers: Nicotine product type: cigarettes Substance use status: in withdrawal Qualified Code(s): F17.213 - Nicotine dependence, cigarettes, with withdrawal (4) Substance-induced sleep disorder Status: Acute (5) Schizoaffective disorder Status: Chronic Comment: As per history, records and self-report. [facility]oll[facility]. On medications. - Initial Treatment Plan Initial Treatment Plan: Psychoeducation provided. Detoxification in progress. Will order Seroquel 200mg HS ( as per patient's request)+ Seroquel 50mg daily. Benefits and side effects discussed. Verbal consent given.
[2019-06-01] MEDS: BISMUTH SUBSALICYLATE 524 MG/30 ML UD PO PRN (18:22)
[2019-06-01] MEDS: THIAMINE HCL 100 MG TABLET (FP) PO SCH (22:02)
[2019-06-01] MEDS: QUEtiapine FUMARATE 200 MG TABLET PO SCH (22:03)
[2019-06-01] MEDS: MELATONIN 5 MG TABLETS PO PRN (22:03)
[2019-06-02] MEDS: chlordiazePOXIDE HCL 25 MG CAPSULE PO SCH ×4 (07:25→22:00)
[2019-06-02] MEDS: NICOTINE 21 MG/24 HOURS TOPICAL PATCH TD SCH (10:16)
[2019-06-02] MEDS: PRENATAL VITAMINS W/ FOLIC ACID TABLET (FP) PO SCH (10:16)
[2019-06-02] MEDS: QUEtiapine FUMARATE 50 MG TABLET PO SCH (10:16)
[2019-06-02] MEDS: IBUPROFEN 400 MG TABLET (FP) PO PRN (17:42)
[2019-06-02] MEDS: THIAMINE HCL 100 MG TABLET (FP) PO SCH (21:57)
[2019-06-02] MEDS: QUEtiapine FUMARATE 200 MG TABLET PO SCH (21:58)
[2019-06-02] MEDS: MELATONIN 5 MG TABLETS PO PRN (22:01)
[2019-06-02] MEDS: BISMUTH SUBSALICYLATE 524 MG/30 ML UD PO PRN (22:03)
[2019-06-03] MEDS ORDERED: chlordiazePOXIDE HCL 10 MG CAPSULE PO PRN
[2019-06-03] MEDS: chlordiazePOXIDE HCL 10 MG CAPSULE PO SCH ×4 (06:24→23:13)
[2019-06-03] MEDS: PRENATAL VITAMINS W/ FOLIC ACID TABLET (FP) PO SCH (10:47)
[2019-06-03] MEDS: NICOTINE 21 MG/24 HOURS TOPICAL PATCH TD SCH (10:47)
[2019-06-03] MEDS: QUEtiapine FUMARATE 50 MG TABLET PO SCH (10:49)
--- NOTE | 2019-06-03 11:51 | PN ---
[facility] CIWA - CIWA Score Nausea/Vomitin-No Nausea/No Vomiting Muscle Tremors: None Anxiety: 3 Agitation: 2 Paroxysmal Sweats: 3 Orientation: 0-Oriented Tacttile Disturbances: 0-None Auditory Disturbances: 0-None Visual Disturbances: 0-None Headache: 1-Very Mild CIWA-Ar Total Score: 9 S Progress Note (SOAP) Subjective: c/o headache, anxiety, sweats, and irritability. Objective: 06/03/19 11:51 Vital Signs 06/03/19 06/03/19 06:50 09:28 Temperature 98.3 F 98.5 F Pulse Rate 88 87 Respiratory 18 18 Rate Blood Pressure 106/74 113/81 Laboratory Last Values WBC 4.7 K/mm3 (4.0-10.0) 06/01/19 08:15 RBC 4.08 M/mm3 (3.60-5.2) 06/01/19 08:15 Hgb 10.9 GM/dL (10.7-15.3) 06/01/19 08:15 Hct 34.5 % (32.4-45.2) 06/01/19 08:15 MCV 84.5 fl (80-96) 06/01/19 08:15 MCH 26.8 pg (25.7-33.7) 06/01/19 08:15 MCHC 31.7 g/dl (32.0-36.0) L 06/01/19 08:15 RDW 15.5 % (11.6-15.6) 06/01/19 08:15 Plt Count 335 K/MM3 (134-434) 06/01/19 08:15 MPV 7.5 fl (7.5-11.1) 06/01/19 08:15 Sodium 140 mmol/L (136-145) 06/01/19 08:15 Potassium 4.6 mmol/L (3.5-5.1) 06/01/19 08:15 Chloride 107 mmol/L (98-107) 06/01/19 08:15 Carbon Dioxide 29 mmol/L (21-32) 06/01/19 08:15 Anion Gap 4 MMOL/L (8-16) L 06/01/19 08:15 BUN 12.9 mg/dL (7-18) 06/01/19 08:15 Creatinine 0.6 mg/dL (0.55-1.3) 06/01/19 08:15 Est GFR (CKD-EPI)AfAm 125.80 06/01/19 08:15 Est GFR (CKD-EPI)NonAf 108.54 06/01/19 08:15 Random Glucose 111 mg/dL (74-106) H 06/01/19 08:15 Calcium 8.4 mg/dL (8.5-10.1) L 06/01/19 08:15 Total Bilirubin 0.3 mg/dL (0.2-1) 06/01/19 08:15 AST 21 U/L (15-37) 06/01/19 08:15 ALT 25 U/L (13-61) 06/01/19 08:15 Alkaline Phosphatase 57 U/L (45-117) 06/01/19 08:15 Total Protein 6.1 g/dl (6.4-8.2) L 06/01/19 08:15 Albumin 3.0 g/dl (3.4-5.0) L 06/01/19 08:15 RPR Titer Nonreactive (NONREACTIVE) 06/01/19 08:15 Labs noted. Assessment: 06/03/19 11:51 AOX3, in no acute respiratory distress. Full ROM, ambulating in the unit. Withdrawal symptoms. Plan: continue detox.
[2019-06-03] MEDS: THIAMINE HCL 100 MG TABLET (FP) PO SCH (23:12)
[2019-06-03] MEDS: QUEtiapine FUMARATE 200 MG TABLET PO SCH (23:13)
[2019-06-04] MEDS: chlordiazePOXIDE HCL 10 MG CAPSULE PO SCH ×2 (06:25→20:47)
[2019-06-04] MEDS: QUEtiapine FUMARATE 50 MG TABLET PO SCH (11:21)
[2019-06-04] MEDS: PRENATAL VITAMINS W/ FOLIC ACID TABLET (FP) PO SCH (11:21)
[2019-06-04] MEDS: NICOTINE 21 MG/24 HOURS TOPICAL PATCH TD SCH (11:21)
--- NOTE | 2019-06-04 11:56 | PN ---
[facility] CIWA - CIWA Score Nausea/Vomitin-No Nausea/No Vomiting Muscle Tremors: 2 Anxiety: 1-Mildly Anxious Agitation: 0-Normal Activity Paroxysmal Sweats: 2 Orientation: 0-Oriented Tacttile Disturbances: 0-None Auditory Disturbances: 0-None Visual Disturbances: 0-None Headache: 0-None Present CIWA-Ar Total Score: 5 BHS Progress Note (SOAP) Subjective: 48 years old female admitted on 05/31/19 for alcohol withdrawal sx management treating with librium detox regimen feeling better from alcohol withdrawal c/o cold symptoms running nose sore throat oral pharyngeal redness no swell no discharge no lesion no lymphadenopathy zithromax 500mg po x 1 250mg po tomorrow Objective: 06/04/19 12:08 Vital Signs Temperature 96.5 F L 06/04/19 09:18 Pulse Rate 87 06/04/19 09:18 Respiratory Rate 18 06/04/19 09:18 Blood Pressure 127/80 06/04/19 09:18 O2 Sat by Pulse Oximetry (%) Laboratory Last Values WBC 4.7 K/mm3 (4.0-10.0) 06/01/19 08:15 RBC 4.08 M/mm3 (3.60-5.2) 06/01/19 08:15 Hgb 10.9 GM/dL (10.7-15.3) 06/01/19 08:15 Hct 34.5 % (32.4-45.2) 06/01/19 08:15 MCV 84.5 fl (80-96) 06/01/19 08:15 MCH 26.8 pg (25.7-33.7) 06/01/19 08:15 MCHC 31.7 g/dl (32.0-36.0) L 06/01/19 08:15 RDW 15.5 % (11.6-15.6) 06/01/19 08:15 Plt Count 335 K/MM3 (134-434) 06/01/19 08:15 MPV 7.5 fl (7.5-11.1) 06/01/19 08:15 Sodium 140 mmol/L (136-145) 06/01/19 08:15 Potassium 4.6 mmol/L (3.5-5.1) 06/01/19 08:15 Chloride 107 mmol/L (98-107) 06/01/19 08:15 Carbon Dioxide 29 mmol/L (21-32) 06/01/19 08:15 Anion Gap 4 MMOL/L (8-16) L 06/01/19 08:15 BUN 12.9 mg/dL (7-18) 06/01/19 08:15 Creatinine 0.6 mg/dL (0.55-1.3) 06/01/19 08:15 Est GFR (CKD-EPI)AfAm 125.80 06/01/19 08:15 Est GFR (CKD-EPI)NonAf 108.54 06/01/19 08:15 Random Glucose 111 mg/dL (74-106) H 06/01/19 08:15 Calcium 8.4 mg/dL (8.5-10.1) L 06/01/19 08:15 Total Bilirubin 0.3 mg/dL (0.2-1) 06/01/19 08:15 AST 21 U/L (15-37) 06/01/19 08:15 ALT 25 U/L (13-61) 06/01/19 08:15 Alkaline Phosphatase 57 U/L (45-117) 06/01/19 08:15 Total Protein 6.1 g/dl (6.4-8.2) L 06/01/19 08:15 Albumin 3.0 g/dl (3.4-5.0) L 06/01/19 08:15 RPR Titer Nonreactive (NONREACTIVE) 06/01/19 08:15 lab noted Assessment: 06/04/19 12:08 alcohol withdrawal Plan: librium regimen
[2019-06-04] MEDS ORDERED: AZITHROMYCIN 250 MG TABLET PO ONE (12:10)
--- NOTE | 2019-06-04 12:13 | PN ---
S CIWA - CIWA Score Nausea/Vomitin-No Nausea/No Vomiting Muscle Tremors: 2 Anxiety: 1-Mildly Anxious Agitation: 0-Normal Activity Paroxysmal Sweats: 2 Orientation: 0-Oriented Tacttile Disturbances: 0-None Auditory Disturbances: 0-None Visual Disturbances: 0-None Headache: 0-None Present CIWA-Ar Total Score: 5 BHS Progress Note (SOAP) Subjective: feeling better less tremor mild anxiety Objective: 06/04/19 12:12 Vital Signs Temperature 96.5 F L 06/04/19 09:18 Pulse Rate 87 06/04/19 09:18 Respiratory Rate 18 06/04/19 09:18 Blood Pressure 127/80 06/04/19 09:18 O2 Sat by Pulse Oximetry (%) Laboratory Last Values WBC 4.7 K/mm3 (4.0-10.0) 06/01/19 08:15 RBC 4.08 M/mm3 (3.60-5.2) 06/01/19 08:15 Hgb 10.9 GM/dL (10.7-15.3) 06/01/19 08:15 Hct 34.5 % (32.4-45.2) 06/01/19 08:15 MCV 84.5 fl (80-96) 06/01/19 08:15 MCH 26.8 pg (25.7-33.7) 06/01/19 08:15 MCHC 31.7 g/dl (32.0-36.0) L 06/01/19 08:15 RDW 15.5 % (11.6-15.6) 06/01/19 08:15 Plt Count 335 K/MM3 (134-434) 06/01/19 08:15 MPV 7.5 fl (7.5-11.1) 06/01/19 08:15 Sodium 140 mmol/L (136-145) 06/01/19 08:15 Potassium 4.6 mmol/L (3.5-5.1) 06/01/19 08:15 Chloride 107 mmol/L (98-107) 06/01/19 08:15 Carbon Dioxide 29 mmol/L (21-32) 06/01/19 08:15 Anion Gap 4 MMOL/L (8-16) L 06/01/19 08:15 BUN 12.9 mg/dL (7-18) 06/01/19 08:15 Creatinine 0.6 mg/dL (0.55-1.3) 06/01/19 08:15 Est GFR (CKD-EPI)AfAm 125.80 06/01/19 08:15 Est GFR (CKD-EPI)NonAf 108.54 06/01/19 08:15 Random Glucose 111 mg/dL (74-106) H 06/01/19 08:15 Calcium 8.4 mg/dL (8.5-10.1) L 06/01/19 08:15 Total Bilirubin 0.3 mg/dL (0.2-1) 06/01/19 08:15 AST 21 U/L (15-37) 06/01/19 08:15 ALT 25 U/L (13-61) 06/01/19 08:15 Alkaline Phosphatase 57 U/L (45-117) 06/01/19 08:15 Total Protein 6.1 g/dl (6.4-8.2) L 06/01/19 08:15 Albumin 3.0 g/dl (3.4-5.0) L 06/01/19 08:15 RPR Titer Nonreactive (NONREACTIVE) 06/01/19 08:15 lab noted Assessment: 06/04/19 12:12 alcohol withdrawal Plan: librium regimen
[2019-06-04] MEDS: THIAMINE HCL 100 MG TABLET (FP) PO SCH (21:59)
[2019-06-04] MEDS: MELATONIN 5 MG TABLETS PO PRN (21:59)
[2019-06-04] MEDS: QUEtiapine FUMARATE 200 MG TABLET PO SCH (21:59)
[2019-06-05] MEDS ORDERED: chlordiazePOXIDE HCL 10 MG CAPSULE PO ONE (05:00)
[2019-06-05] MEDS ORDERED: AZITHROMYCIN 250 MG TABLET PO SCH (06:00)
[2019-06-05 09:25] VITALS: BP 127/86; PULSE 94; TEMP 97.5
[2019-06-05] MEDS: NICOTINE 21 MG/24 HOURS TOPICAL PATCH TD SCH (11:37)
[2019-06-05] MEDS: QUEtiapine FUMARATE 50 MG TABLET PO SCH (11:37)
[2019-06-05] MEDS: PRENATAL VITAMINS W/ FOLIC ACID TABLET (FP) PO SCH (11:37)
--- NOTE | 2019-06-05 12:37 | DS ---
[facility] Detox Discharge Summary Admission Date: 05/31/19 Discharge Date: 06/05/19 - History Present History: Alcohol Dependence Additional Comments: 48 YEARS OLD FEMALE ADMITTED ON 05/31/19 FOR ALCOHOL WITHDRAWAL SX MANAGEMENT TREATED WITH LIBRIUM DETOX REGIMEN COMPLETED DETOX REGIMEN AND TOLERATED WELL ALERT ORIENTED X 3 CARDIAC S1S2 REGULAR RATE RHYTHM RESPIRATORY CLEAR LUNGS BILATERALLY ON AUSCULTATION SKIN WARM AND DRY - Physical Exam Results Vital Signs: Vital Signs Temperature 97.5 F L 06/05/19 09:25 Pulse Rate 94 H 06/05/19 09:25 Respiratory Rate 18 06/05/19 09:25 Blood Pressure 127/86 06/05/19 09:25 O2 Sat by Pulse Oximetry (%) Pertinent Admission Physical Exam Findings: ALCOHOL WITHDRAWAL Laboratory Last Values WBC 4.7 K/mm3 (4.0-10.0) 06/01/19 08:15 RBC 4.08 M/mm3 (3.60-5.2) 06/01/19 08:15 Hgb 10.9 GM/dL (10.7-15.3) 06/01/19 08:15 Hct 34.5 % (32.4-45.2) 06/01/19 08:15 MCV 84.5 fl (80-96) 06/01/19 08:15 MCH 26.8 pg (25.7-33.7) 06/01/19 08:15 MCHC 31.7 g/dl (32.0-36.0) L 06/01/19 08:15 RDW 15.5 % (11.6-15.6) 06/01/19 08:15 Plt Count 335 K/MM3 (134-434) 06/01/19 08:15 MPV 7.5 fl (7.5-11.1) 06/01/19 08:15 Sodium 140 mmol/L (136-145) 06/01/19 08:15 Potassium 4.6 mmol/L (3.5-5.1) 06/01/19 08:15 Chloride 107 mmol/L (98-107) 06/01/19 08:15 Carbon Dioxide 29 mmol/L (21-32) 06/01/19 08:15 Anion Gap 4 MMOL/L (8-16) L 06/01/19 08:15 BUN 12.9 mg/dL (7-18) 06/01/19 08:15 Creatinine 0.6 mg/dL (0.55-1.3) 06/01/19 08:15 Est GFR (CKD-EPI)AfAm 125.80 06/01/19 08:15 Est GFR (CKD-EPI)NonAf 108.54 06/01/19 08:15 Random Glucose 111 mg/dL (74-106) H 06/01/19 08:15 Calcium 8.4 mg/dL (8.5-10.1) L 06/01/19 08:15 Total Bilirubin 0.3 mg/dL (0.2-1) 06/01/19 08:15 AST 21 U/L (15-37) 06/01/19 08:15 ALT 25 U/L (13-61) 06/01/19 08:15 Alkaline Phosphatase 57 U/L (45-117) 06/01/19 08:15 Total Protein 6.1 g/dl (6.4-8.2) L 06/01/19 08:15 Albumin 3.0 g/dl (3.4-5.0) L 06/01/19 08:15 RPR Titer Nonreactive (NONREACTIVE) 06/01/19 08:15 LAB NOTED - Treatment Hospital Course: Detox Protocol Followed, Detoxed Safely, Responded well, Discharged Condition Good, Rehab Referral Accepted Patient has Accepted a Rehab Referral to: [facility] - Medication Discharge Medications: Ambulatory Orders Quetiapine Fumarate [Seroquel] 300 mg PO HS 05/31/19 - Diagnosis (1) Alcohol dependence with uncomplicated withdrawal Current Visit: Yes Status: Acute (2) Nicotine dependence Current Visit: Yes Status: Acute Qualifiers: Nicotine product type: cigarettes Substance use status: in withdrawal Qualified Code(s): F17.213 - Nicotine dependence, cigarettes, with withdrawal (3) Obesity Current Visit: Yes Status: Chronic Qualifiers: Obesity classification: adult class 1 (BMI 30 - 34.9) Serious obesity comorbidity presence: without serious comorbidity (4) Positive PPD Current Visit: Yes Status: Resolved (5) Substance induced mood disorder Current Visit: Yes Status: Suspected - AMA Did Patient Leave Against Medical Advice: No CIWA Score - CIWA Score Nausea/Vomitin-No Nausea/No Vomiting Muscle Tremors: 2 Anxiety: 1-Mildly Anxious Agitation: 0-Normal Activity Paroxysmal Sweats: 2 Orientation: 0-Oriented Tacttile Disturbances: 0-None Auditory Disturbances: 0-None Visual Disturbances: 0-None Headache: 0-None Present CIWA-Ar Total Score: 5
[2019-06-06] MEDS ORDERED: chlordiazePOXIDE 5 MG CAPSULE PO ONE (06:00)
== END 2019-06-05 11:45 | disposition other institution (70) | DRG 774 ==
LOC: YASAS 14:06 → Y3N 21:52
PROVIDERS: ADMIT Allergy & Immunology; ATTEND Allergy & Immunology
PROC: HZ2ZZZZ Detoxification Services for Substance Abuse Treatment (ICD-10-PCS; principal; 2019-05-31)
DX: F10.230 Alcohol dependence with withdrawal, uncomplicated (principal); F14.20 Cocaine dependence, uncomplicated; F17.213 Nicotine dependence, cigarettes, with withdrawal; F19.24 Other psychoactive substance dependence with psychoactive substance-induced mood disorder; F19.282 Other psychoactive substance dependence with psychoactive substance-induced sleep disorder; F25.9 Schizoaffective disorder, unspecified; J45.909 Unspecified asthma, uncomplicated; R76.11 Nonspecific reaction to tuberculin skin test without active tuberculosis; E66.9 Obesity, unspecified; Z68.32 Body mass index [BMI] 32.0-32.9, adult; R10.13 Epigastric pain; R00.0 Tachycardia, unspecified
CPT/HCPCS: 36415; 71046-TC-FY; 80053; 85027; 86593; 93005; 93010

== ENCOUNTER 2019-06-05 10:50 | Inpatient (IN) | payer OTHER ==
[2019-06-05] MEDS ORDERED: LOPERAMIDE HCL 2 MG CAPSULE PO PRN (12:45)
[2019-06-05] MEDS ORDERED: NICOTINE POLACRILEX 4 MG GUM BUC PRN (12:45)
[2019-06-05] MEDS ORDERED: MAGNESIUM CITRATE 300 ML BOTTLE PO PRN (12:45)
[2019-06-05] MEDS ORDERED: P-EPHED 60MG/TRIPROLIDI 2.5MG TABLET PO PRN (12:45)
[2019-06-05] MEDS ORDERED: ACETAMINOPHEN 325 MG TABLET (FP) PO PRN (12:45)
[2019-06-05] MEDS ORDERED: MENTHOL/PHENOL 1 EACH UD MM PRN (12:45)
--- NOTE | 2019-06-05 12:45 | HP ---
[facility] Rehab Assess/Revision - Admission History Admitted to Rehab from: [facility] Date of Admission to Rehab: 06/05/19 - Vital signs Vital Signs: Vital Signs Period Temp Pulse Resp BP Sys/Metcalf Pulse Ox Last 24 Hr 97.7 F 98 18 109/71 - Findings Detox History & Physical reviewed: Yes Concur with findings: Yes Comments/Additional Findings: TRANSFERRED FROM DETOX TO REHAB ADMISSION PER PROTOCOL Inpatient Rehab Admission - Rehab Decision to Admit Inpatient rehab admission?: Yes - Initial Determination Are CD services needed?: Yes Free of communicable disease: Yes Not in need of hospitalization: Yes - Rehab Admission Criteria Previous failed treatment: Yes Poor recovery environment: Yes Comorbidities: Yes Lacks judgement: Yes Patient is meeting Inpatient Rehab admission criteria:: Yes
[2019-06-05] MEDS: IBUPROFEN 400 MG TABLET (FP) PO PRN (21:13)
[2019-06-05] MEDS: QUEtiapine FUMARATE 200 MG TABLET PO SCH (21:13)
[2019-06-05] MEDS: THIAMINE HCL 100 MG TABLET (FP) PO SCH (21:14)
[2019-06-05] MEDS: MELATONIN 5 MG TABLETS PO PRN (21:14)
[2019-06-05] MEDS: MAG HYDROX/AL HYDROX/SIMETH 30 ML UNIT-DOSE CUP PO PRN (22:07)
[2019-06-05] MEDS ORDERED: PT OWN MED DRAWER 7, Y5N ONE (22:51)
--- NOTE | 2019-06-06 09:55 | PN ---
[facility] Progress Note Note: Pt is a 48 y/o female with a hx of QUIANA-alcohol,cocaine admitted to rehab from detox [address] [place] [address]. PMHx of Asthma,Chronic Low Back Pain. Psych Hx of Schizoaffective Disorder and Sleep disorder. Pt reports she has a PCP Dr David Dao at [facility] for medical management. Pt c/o knee pain today. Vital Signs - 24 hr 06/05/19 06/06/19 12:11 07:32 Temperature 97.7 F Pulse Rate 98 H Respiratory 18 18 Rate Blood Pressure 109/71 alert o x 3,denies s/h/i nad oob ambulates with steady gait extremities/skin:no edema;skin intact with slight dark patches of skin discolorations on ankles. A/P s/p detox new rehab pt maintain safety tylenol or motrin prn for pain increase po fluids as tolerated cont rehab
[2019-06-06] MEDS: PRENATAL VITAMINS W/ FOLIC ACID TABLET (FP) PO SCH (09:59)
[2019-06-06] MEDS: NICOTINE 21 MG/24 HOURS TOPICAL PATCH TD SCH (09:59)
[2019-06-06] MEDS: QUEtiapine FUMARATE 50 MG TABLET PO SCH (09:59)
--- NOTE | 2019-06-06 16:09 | CONSULT ---
[facility] Psychiatric Consult - Data Date of interview: 06/06/19 Admission source: Transfer from [address] [place] [address]. Identifying data: Revisit to [facility] and admission to [address] ( from the detoxification unit at [address] [place] [address]) for this 48 y/o AA female who sought rehabilitation treatment for safeguard of sobriety and management of her QUIANA issues (alcohol, cocaine, nicotine) co-morbid with schizoaffective disorder. Patient is single, mother of four, homeless, unemployed and suported on SSI benefits. Substance Abuse History: Smoking history: Current every day smoker. Have you smoked in the past 12 months: Yes. Aproximately how many cigarettes per day: 20. Cigars Per Day: 0. Hx Chewing Tobacco Use: No. Initiated information on smoking cessation: Yes. 'Breaking Loose' booklet given: 05/31/19. - Substance & Tx. History. Hx Alcohol Use: Yes. Hx Substance Use: Yes. Substance Use Type : Alcohol, Cocaine. Hx Substance Use Treatment: Yes ([facility]). - Substances abused. Alcohol. Substance route: Oral. Frequency: Daily. Amount used: 6 cans of beers. Age of first use: 19. Date of last use: 05/31/19. Crack. Substance route: Smoking. Frequency: 1-2 times per week. Amount used: $30. Age of first use: 19. Date of last use: 05/31/19 Medical History: Bronchial asthma. Psychiatric History: Onset of psychiatric disturbances : 2010 (mood dysregulation, persecutory delusions). Patient reports a history of multiple psychiatric hospitalizations ([facility] [place], [facility], [facility]). Diagnosed with Schizoaffective Disorder. Ms Mcnair is currently follwed by the [facility] team of [facility] ([phone]). She endorses maintenance treatment with seroquel 50 mg/am + 200 mg/hs (patient refused to resume invega injections). No reported history of suicide attempts. Physical/Sexual Abuse/Trauma History: Patient denies history of abuse. Additional Comment: Urine drug screen results: THOMAS-Cocaine. Noted. Mental Status Exam - Mental Status Exam Alert and Oriented to: Time, Place, Person Cognitive Function: Good Patient Appearance: Well Groomed Mood: Hopeful, Euthymic Affect: Appropriate, Normal Range Patient Behavior: Appropriate, Cooperative Speech Pattern: Clear Voice Loudness: Normal Thought Process: Goal Oriented Thought Disorder: Not Present Hallucinations: Denies Suicidal Ideation: Denies Homicidal Ideation: Denies Insight/Judgement: Poor Sleep: Well Appetite: Good Gait/Station: Normal Psychiatric Findings - Problem List ([place] 1, 2,3) (1) Alcohol dependence Current Visit: Yes Status: Chronic Qualifiers: Substance use status: uncomplicated Qualified Code(s): F10.20 - Alcohol dependence, uncomplicated (2) Cocaine dependence Current Visit: Yes Status: Chronic Qualifiers: Substance use status: uncomplicated Qualified Code(s): F14.20 - Cocaine dependence, uncomplicated (3) Nicotine dependence Current Visit: Yes Status: Chronic Qualifiers: Nicotine product type: cigarettes Substance use status: in withdrawal Qualified Code(s): F17.213 - Nicotine dependence, cigarettes, with withdrawal (4) Schizoaffective disorder Current Visit: Yes Status: Chronic Comment: As per history, records and self -report. Follwed by VNS-ACT team in [facility]. On medications. (5) Insomnia Current Visit: Yes Status: Chronic - Initial Treatment Plan Initial Treatment Plan: Psychoeducation. Sleep hygiene. Support. Patient is encouraged to resume injections of Invega. She declines. Vague about side effects. AA meetings. Groups. Seroquel is resumed at the doses of 50 mg po am + 200 mg po hs. Side effects/benefits discussed with the patient. Ms Mcnair expresses her satosfaction with this regimen. Gave her informed consent (verbal ) to MD. Eugene.
[2019-06-06] MEDS ORDERED: PT OWN MED DRAWER 7, Y5N ONE ×3 (18:43→23:28)
[2019-06-06] MEDS: QUEtiapine FUMARATE 200 MG TABLET PO SCH (21:48)
[2019-06-06] MEDS: MELATONIN 5 MG TABLETS PO PRN (21:48)
[2019-06-06] MEDS: THIAMINE HCL 100 MG TABLET (FP) PO SCH (21:48)
[2019-06-06] MEDS: IBUPROFEN 400 MG TABLET (FP) PO PRN (21:49)
[2019-06-06] MEDS: MAG HYDROX/AL HYDROX/SIMETH 30 ML UNIT-DOSE CUP PO PRN (21:50)
[2019-06-07] MEDS: NICOTINE 21 MG/24 HOURS TOPICAL PATCH TD SCH (10:01)
[2019-06-07] MEDS: QUEtiapine FUMARATE 50 MG TABLET PO SCH (10:01)
[2019-06-07] MEDS: PRENATAL VITAMINS W/ FOLIC ACID TABLET (FP) PO SCH (10:01)
[2019-06-07] MEDS: MAGNESIUM HYDROX 2400MG/30ML ORAL SUSPENSION 30 ML CUP PO PRN (17:04)
[2019-06-07] MEDS: MELATONIN 5 MG TABLETS PO PRN (21:34)
[2019-06-07] MEDS: THIAMINE HCL 100 MG TABLET (FP) PO SCH (21:34)
[2019-06-07] MEDS: QUEtiapine FUMARATE 200 MG TABLET PO SCH (21:34)
[2019-06-07] MEDS: MAG HYDROX/AL HYDROX/SIMETH 30 ML UNIT-DOSE CUP PO PRN (21:35)
[2019-06-07] MEDS ORDERED: PT OWN MED DRAWER 7, Y5N ONE (22:17)
[2019-06-08] MEDS: NICOTINE 21 MG/24 HOURS TOPICAL PATCH TD SCH (09:57)
[2019-06-08] MEDS: QUEtiapine FUMARATE 50 MG TABLET PO SCH (09:57)
[2019-06-08] MEDS: PRENATAL VITAMINS W/ FOLIC ACID TABLET (FP) PO SCH (09:57)
[2019-06-08] MEDS: THIAMINE HCL 100 MG TABLET (FP) PO SCH (21:12)
[2019-06-08] MEDS: QUEtiapine FUMARATE 200 MG TABLET PO SCH (21:12)
[2019-06-08] MEDS: MELATONIN 5 MG TABLETS PO PRN (21:13)
[2019-06-08] MEDS: IBUPROFEN 400 MG TABLET (FP) PO PRN (21:14)
[2019-06-09] MEDS: NICOTINE 21 MG/24 HOURS TOPICAL PATCH TD SCH (09:25)
[2019-06-09] MEDS: QUEtiapine FUMARATE 50 MG TABLET PO SCH (09:26)
[2019-06-09] MEDS: PRENATAL VITAMINS W/ FOLIC ACID TABLET (FP) PO SCH (09:26)
[2019-06-09] MEDS: MAG HYDROX/AL HYDROX/SIMETH 30 ML UNIT-DOSE CUP PO PRN ×2 (09:27→19:54)
[2019-06-09] MEDS: IBUPROFEN 400 MG TABLET (FP) PO PRN (21:21)
[2019-06-09] MEDS: QUEtiapine FUMARATE 200 MG TABLET PO SCH (21:21)
[2019-06-09] MEDS: THIAMINE HCL 100 MG TABLET (FP) PO SCH (21:22)
[2019-06-09] MEDS: MELATONIN 5 MG TABLETS PO PRN (21:22)
[2019-06-10] MEDS: PRENATAL VITAMINS W/ FOLIC ACID TABLET (FP) PO SCH (09:31)
[2019-06-10] MEDS: NICOTINE 21 MG/24 HOURS TOPICAL PATCH TD SCH (09:31)
[2019-06-10] MEDS: QUEtiapine FUMARATE 50 MG TABLET PO SCH (09:31)
[2019-06-10] MEDS ORDERED: PT OWN MED DRAWER 7, Y5N ONE ×2 (18:23→22:09)
[2019-06-10] MEDS: THIAMINE HCL 100 MG TABLET (FP) PO SCH (21:18)
[2019-06-10] MEDS: QUEtiapine FUMARATE 200 MG TABLET PO SCH (21:18)
[2019-06-10] MEDS: MELATONIN 5 MG TABLETS PO PRN (21:18)
[2019-06-10] MEDS: IBUPROFEN 400 MG TABLET (FP) PO PRN (21:18)
[2019-06-10] MEDS: MAG HYDROX/AL HYDROX/SIMETH 30 ML UNIT-DOSE CUP PO PRN (21:19)
[2019-06-11] MEDS: NICOTINE 21 MG/24 HOURS TOPICAL PATCH TD SCH (10:13)
[2019-06-11] MEDS: PRENATAL VITAMINS W/ FOLIC ACID TABLET (FP) PO SCH (10:13)
[2019-06-11] MEDS: QUEtiapine FUMARATE 50 MG TABLET PO SCH (10:13)
[2019-06-11] MEDS: MAG HYDROX/AL HYDROX/SIMETH 30 ML UNIT-DOSE CUP PO PRN (10:14)
[2019-06-11] MEDS: THIAMINE HCL 100 MG TABLET (FP) PO SCH (21:55)
[2019-06-11] MEDS: QUEtiapine FUMARATE 200 MG TABLET PO SCH (21:55)
[2019-06-11] MEDS: guaiFENesin 200 MG/10 ML 10 ML UNIT-DOSE CUPS PO PRN (21:57)
[2019-06-11] MEDS: IBUPROFEN 400 MG TABLET (FP) PO PRN (21:57)
[2019-06-11] MEDS ORDERED: PT OWN MED DRAWER 7, Y5N ONE (21:59)
[2019-06-12] MEDS: PRENATAL VITAMINS W/ FOLIC ACID TABLET (FP) PO SCH (09:17)
[2019-06-12] MEDS: NICOTINE 21 MG/24 HOURS TOPICAL PATCH TD SCH (09:17)
[2019-06-12] MEDS: QUEtiapine FUMARATE 50 MG TABLET PO SCH (09:17)
[2019-06-12] MEDS: LIDOCAINE 5% TOPICAL PATCH TP SCH (10:59)
[2019-06-12] MEDS ORDERED: PT OWN MED DRAWER 7, Y5N ONE ×2 (19:47→22:10)
[2019-06-12] MEDS: MELATONIN 5 MG TABLETS PO PRN (21:25)
[2019-06-12] MEDS: THIAMINE HCL 100 MG TABLET (FP) PO SCH (21:25)
[2019-06-12] MEDS: LIDOCAINE PATCH REMOVAL MC SCH (21:25)
[2019-06-12] MEDS: QUEtiapine FUMARATE 200 MG TABLET PO SCH (21:25)
[2019-06-12] MEDS: IBUPROFEN 600 MG TABLET (FP) PO PRN (21:26)
[2019-06-12] MEDS: guaiFENesin 200 MG/10 ML 10 ML UNIT-DOSE CUPS PO PRN (21:26)
[2019-06-12] MEDS ORDERED: INSULIN (LEVEMIR) 100 UNITS/ML UNITS SQ ONE (22:12)
[2019-06-12] MEDS ORDERED: INSULIN (NOVOLOG) ASPART 100 UNITS/ML 10ML VIAL ONE (22:12)
[2019-06-13] MEDS: LIDOCAINE 5% TOPICAL PATCH TP SCH (09:01)
[2019-06-13] MEDS: NICOTINE 21 MG/24 HOURS TOPICAL PATCH TD SCH (09:02)
[2019-06-13] MEDS: QUEtiapine FUMARATE 50 MG TABLET PO SCH (09:02)
[2019-06-13] MEDS: PRENATAL VITAMINS W/ FOLIC ACID TABLET (FP) PO SCH (09:02)
[2019-06-13] MEDS: MAG HYDROX/AL HYDROX/SIMETH 30 ML UNIT-DOSE CUP PO PRN (21:26)
[2019-06-13] MEDS: QUEtiapine FUMARATE 200 MG TABLET PO SCH (21:26)
[2019-06-13] MEDS: guaiFENesin 200 MG/10 ML 10 ML UNIT-DOSE CUPS PO PRN (21:26)
[2019-06-13] MEDS: LIDOCAINE PATCH REMOVAL MC SCH (21:27)
[2019-06-13] MEDS: MELATONIN 5 MG TABLETS PO PRN (21:27)
[2019-06-13] MEDS: THIAMINE HCL 100 MG TABLET (FP) PO SCH (21:28)
[2019-06-14] MEDS: LIDOCAINE 5% TOPICAL PATCH TP SCH (10:15)
[2019-06-14] MEDS: QUEtiapine FUMARATE 50 MG TABLET PO SCH (10:15)
[2019-06-14] MEDS: PRENATAL VITAMINS W/ FOLIC ACID TABLET (FP) PO SCH (10:15)
[2019-06-14] MEDS: NICOTINE 21 MG/24 HOURS TOPICAL PATCH TD SCH (10:15)
[2019-06-14] MEDS: guaiFENesin 200 MG/10 ML 10 ML UNIT-DOSE CUPS PO PRN (10:17)
[2019-06-14] MEDS: MAG HYDROX/AL HYDROX/SIMETH 30 ML UNIT-DOSE CUP PO PRN (10:18)
[2019-06-14] MEDS ORDERED: PT OWN MED DRAWER 7, Y5N ONE ×2 (19:39→21:56)
[2019-06-14] MEDS: THIAMINE HCL 100 MG TABLET (FP) PO SCH (21:01)
[2019-06-14] MEDS: QUEtiapine FUMARATE 200 MG TABLET PO SCH (21:02)
[2019-06-14] MEDS: MELATONIN 5 MG TABLETS PO PRN (21:02)
[2019-06-14] MEDS: LIDOCAINE PATCH REMOVAL MC SCH (21:02)
[2019-06-15] MEDS: LIDOCAINE 5% TOPICAL PATCH TP SCH (09:11)
[2019-06-15] MEDS: NICOTINE 21 MG/24 HOURS TOPICAL PATCH TD SCH (09:11)
[2019-06-15] MEDS: QUEtiapine FUMARATE 50 MG TABLET PO SCH (09:12)
[2019-06-15] MEDS: MAGNESIUM HYDROX 2400MG/30ML ORAL SUSPENSION 30 ML CUP PO PRN (09:12)
[2019-06-15] MEDS: PRENATAL VITAMINS W/ FOLIC ACID TABLET (FP) PO SCH (09:12)
[2019-06-15] MEDS ORDERED: PT OWN MED DRAWER 7, Y5N ONE (19:28)
[2019-06-15] MEDS: QUEtiapine FUMARATE 200 MG TABLET PO SCH (21:55)
[2019-06-15] MEDS: MELATONIN 5 MG TABLETS PO PRN (21:55)
[2019-06-15] MEDS: THIAMINE HCL 100 MG TABLET (FP) PO SCH (21:55)
[2019-06-15] MEDS: LIDOCAINE PATCH REMOVAL MC SCH (21:56)
[2019-06-15] MEDS: MAG HYDROX/AL HYDROX/SIMETH 30 ML UNIT-DOSE CUP PO PRN (21:56)
[2019-06-16] MEDS: LIDOCAINE 5% TOPICAL PATCH TP SCH (09:57)
[2019-06-16] MEDS: NICOTINE 21 MG/24 HOURS TOPICAL PATCH TD SCH (09:57)
[2019-06-16] MEDS: QUEtiapine FUMARATE 50 MG TABLET PO SCH (09:58)
[2019-06-16] MEDS: PRENATAL VITAMINS W/ FOLIC ACID TABLET (FP) PO SCH (09:58)
[2019-06-16] MEDS: MAG HYDROX/AL HYDROX/SIMETH 30 ML UNIT-DOSE CUP PO PRN ×2 (09:59→19:46)
[2019-06-16] MEDS ORDERED: PT OWN MED DRAWER 7, Y5N ONE ×4 (21:07→22:53)
[2019-06-16] MEDS: LIDOCAINE PATCH REMOVAL MC SCH (21:40)
[2019-06-16] MEDS: MELATONIN 5 MG TABLETS PO PRN (21:40)
[2019-06-16] MEDS: THIAMINE HCL 100 MG TABLET (FP) PO SCH (21:40)
[2019-06-16] MEDS: QUEtiapine FUMARATE 200 MG TABLET PO SCH (21:40)
[2019-06-17] MEDS: LIDOCAINE 5% TOPICAL PATCH TP SCH (09:54)
[2019-06-17] MEDS: NICOTINE 21 MG/24 HOURS TOPICAL PATCH TD SCH (09:55)
[2019-06-17] MEDS: PRENATAL VITAMINS W/ FOLIC ACID TABLET (FP) PO SCH (09:55)
[2019-06-17] MEDS: QUEtiapine FUMARATE 50 MG TABLET PO SCH (09:55)
[2019-06-17] MEDS: IBUPROFEN 600 MG TABLET (FP) PO PRN (09:56)
[2019-06-17] MEDS: LIDOCAINE PATCH REMOVAL MC SCH (21:28)
[2019-06-17] MEDS: QUEtiapine FUMARATE 200 MG TABLET PO SCH (21:28)
[2019-06-17] MEDS: THIAMINE HCL 100 MG TABLET (FP) PO SCH (21:28)
[2019-06-17] MEDS: MELATONIN 5 MG TABLETS PO PRN (21:28)
[2019-06-17] MEDS: MAG HYDROX/AL HYDROX/SIMETH 30 ML UNIT-DOSE CUP PO PRN (21:29)
[2019-06-18] MEDS: PRENATAL VITAMINS W/ FOLIC ACID TABLET (FP) PO SCH (09:44)
[2019-06-18] MEDS: QUEtiapine FUMARATE 50 MG TABLET PO SCH (09:44)
[2019-06-18] MEDS: NICOTINE 21 MG/24 HOURS TOPICAL PATCH TD SCH (09:45)
[2019-06-18] MEDS: LIDOCAINE 5% TOPICAL PATCH TP SCH (09:45)
[2019-06-18] MEDS: MAG HYDROX/AL HYDROX/SIMETH 30 ML UNIT-DOSE CUP PO PRN ×2 (09:46→21:59)
[2019-06-18] MEDS: THIAMINE HCL 100 MG TABLET (FP) PO SCH (21:58)
[2019-06-18] MEDS: MELATONIN 5 MG TABLETS PO PRN (21:58)
[2019-06-18] MEDS: QUEtiapine FUMARATE 200 MG TABLET PO SCH (21:58)
[2019-06-18] MEDS: LIDOCAINE PATCH REMOVAL MC SCH (22:01)
[2019-06-19] MEDS: PRENATAL VITAMINS W/ FOLIC ACID TABLET (FP) PO SCH (09:57)
[2019-06-19] MEDS: QUEtiapine FUMARATE 50 MG TABLET PO SCH (09:57)
[2019-06-19] MEDS: MAG HYDROX/AL HYDROX/SIMETH 30 ML UNIT-DOSE CUP PO PRN ×2 (09:57→21:14)
[2019-06-19] MEDS: NICOTINE 21 MG/24 HOURS TOPICAL PATCH TD SCH (09:57)
[2019-06-19] MEDS: LIDOCAINE 5% TOPICAL PATCH TP SCH (09:57)
[2019-06-19] MEDS ORDERED: PT OWN MED DRAWER 7, Y5N ONE ×4 (21:10→22:58)
[2019-06-19] MEDS: THIAMINE HCL 100 MG TABLET (FP) PO SCH (21:13)
[2019-06-19] MEDS: MELATONIN 5 MG TABLETS PO PRN (21:13)
[2019-06-19] MEDS: QUEtiapine FUMARATE 200 MG TABLET PO SCH (21:13)
[2019-06-19] MEDS: LIDOCAINE PATCH REMOVAL MC SCH (21:14)
[2019-06-19] MEDS ORDERED: INSULIN (LEVEMIR) 100 UNITS/ML UNITS SQ ONE (22:08)
[2019-06-19] MEDS ORDERED: INSULIN (NOVOLOG) ASPART 100 UNITS/ML 10ML VIAL ONE (22:10)
[2019-06-19] MEDS ORDERED: TUBERCULIN PPD 5 TU/0.1ML VIAL ID ONE (22:58)
[2019-06-20] MEDS: QUEtiapine FUMARATE 50 MG TABLET PO SCH (09:31)
[2019-06-20] MEDS: PRENATAL VITAMINS W/ FOLIC ACID TABLET (FP) PO SCH (09:31)
[2019-06-20] MEDS: NICOTINE 21 MG/24 HOURS TOPICAL PATCH TD SCH (09:31)
[2019-06-20] MEDS: LIDOCAINE 5% TOPICAL PATCH TP SCH (09:31)
[2019-06-20] MEDS: PANTOPRAZOLE 40 MG TABLET PO SCH (09:32)
[2019-06-20] MEDS ORDERED: PT OWN MED DRAWER 7, Y5N ONE ×2 (21:05→22:33)
[2019-06-20] MEDS: MELATONIN 5 MG TABLETS PO PRN (21:15)
[2019-06-20] MEDS: QUEtiapine FUMARATE 200 MG TABLET PO SCH (21:15)
[2019-06-20] MEDS: THIAMINE HCL 100 MG TABLET (FP) PO SCH (21:15)
[2019-06-20] MEDS: LIDOCAINE PATCH REMOVAL MC SCH (21:16)
[2019-06-21] MEDS: NICOTINE 21 MG/24 HOURS TOPICAL PATCH TD SCH (09:55)
[2019-06-21] MEDS: PRENATAL VITAMINS W/ FOLIC ACID TABLET (FP) PO SCH (09:55)
[2019-06-21] MEDS: LIDOCAINE 5% TOPICAL PATCH TP SCH (09:55)
[2019-06-21] MEDS: PANTOPRAZOLE 40 MG TABLET PO SCH (09:56)
[2019-06-21] MEDS: QUEtiapine FUMARATE 50 MG TABLET PO SCH (09:56)
[2019-06-21] MEDS ORDERED: PT OWN MED DRAWER 7, Y5N ONE ×2 (19:50→21:59)
[2019-06-21] MEDS: QUEtiapine FUMARATE 200 MG TABLET PO SCH (21:06)
[2019-06-21] MEDS: THIAMINE HCL 100 MG TABLET (FP) PO SCH (21:06)
[2019-06-21] MEDS: MELATONIN 5 MG TABLETS PO PRN (21:06)
[2019-06-21] MEDS: LIDOCAINE PATCH REMOVAL MC SCH (21:07)
[2019-06-21] MEDS ORDERED: TUBERCULIN PPD 5 TU/0.1ML VIAL ID ONE (22:03)
[2019-06-22] MEDS: LIDOCAINE 5% TOPICAL PATCH TP SCH (09:27)
[2019-06-22] MEDS: PANTOPRAZOLE 40 MG TABLET PO SCH (09:28)
[2019-06-22] MEDS: NICOTINE 21 MG/24 HOURS TOPICAL PATCH TD SCH (09:28)
[2019-06-22] MEDS: PRENATAL VITAMINS W/ FOLIC ACID TABLET (FP) PO SCH (09:28)
[2019-06-22] MEDS: QUEtiapine FUMARATE 50 MG TABLET PO SCH (09:28)
[2019-06-22] MEDS ORDERED: PT OWN MED DRAWER 7, Y5N ONE (19:24)
[2019-06-22] MEDS: QUEtiapine FUMARATE 200 MG TABLET PO SCH (21:06)
[2019-06-22] MEDS: MELATONIN 5 MG TABLETS PO PRN (21:06)
[2019-06-22] MEDS: LIDOCAINE PATCH REMOVAL MC SCH (21:06)
[2019-06-22] MEDS: THIAMINE HCL 100 MG TABLET (FP) PO SCH (21:06)
[2019-06-23] MEDS: PRENATAL VITAMINS W/ FOLIC ACID TABLET (FP) PO SCH (10:08)
[2019-06-23] MEDS: LIDOCAINE 5% TOPICAL PATCH TP SCH (10:08)
[2019-06-23] MEDS: NICOTINE 21 MG/24 HOURS TOPICAL PATCH TD SCH (10:08)
[2019-06-23] MEDS: QUEtiapine FUMARATE 50 MG TABLET PO SCH (10:09)
[2019-06-23] MEDS: PANTOPRAZOLE 40 MG TABLET PO SCH (10:09)
--- NOTE | 2019-06-23 16:42 | PN ---
Psychiatric Progress Note Vital Signs: Vital Signs Period Temp Pulse Resp BP Sys/Metcalf Pulse Ox Last 24 Hr 97.9 F 84 18-18 115/78 Date of Session: 06/23/19 Chief Complaint:: " Will I get a script for melatonin when I leave next week ? " HPI: Day 28 of rehabilitation. Uneventful hospitalization. No complaint from the patient. Doing well. Reason for psychiatric re-consult : evaluation of psychiatric medications. ROS: Patient ia alert, fully oriented, pleasant and cooperative. Ambulatory. No complaint offered during interview. Current Medications: Active Medications Generic Name Dose Route Start Last Admin Trade Name Freq PRN Reason Stop Dose Admin Acetaminophen 650 mg 06/05/19 12:45 Tylenol - PO Q4H PRN FEVER Al Hydroxide/Mg Hydroxide 30 ml 06/05/19 12:45 06/19/19 21:14 Mylanta Oral Suspension - PO 30 ml Q6H PRN Administration DYSPEPSIA Eucalyptus/Menthol/Phenol/Sorbitol 1 each 06/05/19 12:45 06/08/19 21:16 Cepastat Lozenge - MM 1 each Q4H PRN Administration SORE THROAT Guaifenesin 10 ml 06/05/19 12:45 06/14/19 10:17 Robitussin - PO 10 ml Q6H PRN Administration COUGH Ibuprofen 600 mg 06/12/19 10:02 06/17/19 09:56 Motrin - PO 600 mg Q6H PRN Administration PAIN LEVEL 4 - 6 Lidocaine 1 patch 06/12/19 10:15 06/23/19 10:08 Lidoderm Patch - TP 1 patch DAILY LALO Administration Loperamide HCl 4 mg 06/05/19 12:45 Imodium - PO Q6H PRN DIARRHEA Magnesium Citrate 300 ml 06/05/19 12:45 Citroma - PO Q48H PRN CONSTIPATION Magnesium Hydroxide 30 ml 06/05/19 12:45 06/15/19 09:12 Milk Of Magnesia - PO 30 ml DAILY PRN Administration CONSTIPATION Melatonin 5 mg 06/05/19 22:00 06/22/19 21:06 Melatonin PO 5 mg HS PRN Administration INSOMNIA Miscellaneous 1 each 06/12/19 22:00 06/22/19 21:06 Lidoderm Patch Removal MC 1 each DAILY@2200 LALO Administration Nicotine 21 mg 06/06/19 10:00 06/23/19 10:08 Nicoderm Patch - TD 21 mg DAILY LALO Administration Nicotine Polacrilex 4 mg 06/05/19 12:45 Nicorette Gum - BUC Q2H PRN NICOTINE REPLACEMENT RX Pantoprazole Sodium 40 mg 06/20/19 10:00 06/23/19 10:09 Protonix - PO 40 mg DAILY LALO Administration Multivit/Folic Acid/Iron 1 tab 06/06/19 10:00 06/23/19 10:08 Vitamins (Sjr) - PO 1 tab DAILY LALO Administration Pseudoephedrine/Triprolidine 1 combo 06/05/19 12:45 Actifed - PO TID PRN NASAL CONGESTION Quetiapine Fumarate 200 mg 06/05/19 22:00 06/22/19 21:06 Seroquel - PO 200 mg HS LALO Administration Quetiapine Fumarate 50 mg 06/06/19 10:00 06/23/19 10:09 Seroquel - PO 50 mg DAILY LALO Administration Thiamine HCl 100 mg 06/05/19 22:00 06/22/19 21:06 Vitamin B1 - PO 100 mg HS LALO Administration Medication(s) Change(s): None. No clinical justification. Patient sttaes that she wants to stay on quetiapine at current doses. " I don't want to get back to Invega injections. I don't like the way it makes me feel." Review of hospital course shows no report of acting out behavior or mood dysregulation. Current Side Effect: No Lab tests ordered: No Lab tests reviewed: Yes Provider note:: Chart reviewed. Met with the patient with RN in attendance. Ms Mcnair reports good sleep, adequate appetite and satisfaction with care dispensed at [facility]. Medications are well tolerated. No report of adverse effects. Patient is noted as friendly, pleasant, appropriate and controlled. Communicates well. Coherent and goal-directed. Patient denies hallucinations. No delusion elicited at time of this examination. Good adherence to plan of care. Ms Mcnair indicates her plan to complete this program and return to live in a shelter house located at [address] [place] [address] ). Director [employer] has established contact with JUSTIN Cifuentes [facility] program consultant at [phone] : case discussed. According to MS Cali, the patient had missed injections of Invega (234 mg IM) for past THREE months. The ACT is planning to visit the patient next week on 06/28/19 at the [facility] [place], operated by [facility] in [facility] (patient already aware of this planned visit as per Ms Viraj : she reportedly spoke to patient via telephone today). Ms Mcnair is at her baseline. See MSE report for details. Normal hospital course. Total face to face time:: 35 Mental Status Exam - Mental Status Exam Alert and Oriented to: Time, Place, Person Cognitive Function: Good Patient Appearance: Well Groomed Mood: Hopeful, Euthymic Affect: Normal Range Patient Behavior: Appropriate, Cooperative Speech Pattern: Clear, Appropriate Voice Loudness: Normal Thought Process: Goal Oriented Thought Disorder: Not Present Hallucinations: Denies Suicidal Ideation: Denies Homicidal Ideation: Denies Insight/Judgement: Fair Sleep: Well Appetite: Good Gait/Station: Normal Psychiatric Treatment Plan - Problem List (1) Alcohol dependence Current Visit: Yes Qualifiers: Substance use status: uncomplicated Qualified Code(s): F10.20 - Alcohol dependence, uncomplicated Comment: . (2) Cocaine dependence Current Visit: Yes Qualifiers: Substance use status: uncomplicated Qualified Code(s): F14.20 - Cocaine dependence, uncomplicated Comment: . (3) Nicotine dependence Current Visit: Yes Qualifiers: Nicotine product type: cigarettes Substance use status: in withdrawal Qualified Code(s): F17.213 - Nicotine dependence, cigarettes, with withdrawal Comment: . (4) Schizoaffective disorder Current Visit: Yes Comment: .As per history, records and self-report. Followed by [facility]NS[facility]ACT team in [facility]. On medications. (5) Insomnia Current Visit: Yes Comment: .
[2019-06-23] MEDS: THIAMINE HCL 100 MG TABLET (FP) PO SCH (21:23)
[2019-06-23] MEDS: QUEtiapine FUMARATE 200 MG TABLET PO SCH (21:23)
[2019-06-23] MEDS: MELATONIN 5 MG TABLETS PO PRN (21:23)
[2019-06-23] MEDS: LIDOCAINE PATCH REMOVAL MC SCH (22:15)
[2019-06-24] MEDS: QUEtiapine FUMARATE 50 MG TABLET PO SCH (10:23)
[2019-06-24] MEDS: PRENATAL VITAMINS W/ FOLIC ACID TABLET (FP) PO SCH (10:23)
[2019-06-24] MEDS: PANTOPRAZOLE 40 MG TABLET PO SCH (10:24)
[2019-06-24] MEDS: LIDOCAINE 5% TOPICAL PATCH TP SCH (10:24)
[2019-06-24] MEDS: NICOTINE 21 MG/24 HOURS TOPICAL PATCH TD SCH (10:24)
[2019-06-24] MEDS: MAG HYDROX/AL HYDROX/SIMETH 30 ML UNIT-DOSE CUP PO PRN (10:26)
[2019-06-24] MEDS ORDERED: PT OWN MED DRAWER 7, Y5N ONE ×2 (19:46→23:07)
[2019-06-24] MEDS: QUEtiapine FUMARATE 200 MG TABLET PO SCH (21:18)
[2019-06-24] MEDS: IBUPROFEN 600 MG TABLET (FP) PO PRN (21:18)
[2019-06-24] MEDS: THIAMINE HCL 100 MG TABLET (FP) PO SCH (21:18)
[2019-06-24] MEDS: MELATONIN 5 MG TABLETS PO PRN (21:18)
[2019-06-24] MEDS: LIDOCAINE PATCH REMOVAL MC SCH (23:09)
[2019-06-25] MEDS: PANTOPRAZOLE 40 MG TABLET PO SCH (10:20)
[2019-06-25] MEDS: NICOTINE 21 MG/24 HOURS TOPICAL PATCH TD SCH (10:20)
[2019-06-25] MEDS: QUEtiapine FUMARATE 50 MG TABLET PO SCH (10:20)
[2019-06-25] MEDS: PRENATAL VITAMINS W/ FOLIC ACID TABLET (FP) PO SCH (10:20)
[2019-06-25] MEDS: LIDOCAINE 5% TOPICAL PATCH TP SCH (10:20)
--- NOTE | 2019-06-25 13:05 | PN ---
[facility] Progress Note Note: Psychiatric nurse practitioner note: Patient scheduled for discharge tomorrow. A 30 day prescription of Seroquel 50mg daily + Seroquel 200mg HS to [facility], [address] [place] [address] [id number] , [place] [address].
[2019-06-25] MEDS: THIAMINE HCL 100 MG TABLET (FP) PO SCH (21:25)
[2019-06-25] MEDS: MELATONIN 5 MG TABLETS PO PRN (21:25)
[2019-06-25] MEDS: QUEtiapine FUMARATE 200 MG TABLET PO SCH (21:25)
[2019-06-25] MEDS: MAG HYDROX/AL HYDROX/SIMETH 30 ML UNIT-DOSE CUP PO PRN (21:25)
[2019-06-25] MEDS: LIDOCAINE PATCH REMOVAL MC SCH (21:25)
[2019-06-25] MEDS ORDERED: PT OWN MED DRAWER 7, Y5N ONE ×3 (21:53→21:57)
[2019-06-26 06:52] VITALS: BP 113/75; PULSE 102; TEMP 98.3
--- NOTE | 2019-06-26 08:33 | DS ---
[facility] Rehab Discharge Summary - [facility] Rehab Discharge Summary Admission Date: 06/05/19 Discharge Date: 06/26/19 - History Present History: Alcohol dependence, Cocaine dependence Pertinent Past History: 48 years old female with a long history of alcohol dependence (since age 19). Patient has been admitted multiple times and reports insignificant period of sobriety. Her last admission at [facility] was for the period 11/24/2018 - 2018. She has medical history of asthma, chronic back pain, PPD positive and reports psych. history of schizophrenia, depression and anxiety. She denies suicidal ideation at this time. Patient is unemployed and lives at [facility] in [facility]. She denies seizures and blackouts. - Discharge Physical Exam Vital Signs: Vital Signs Temperature 98.3 F 06/26/19 06:52 Pulse Rate 102 H 06/26/19 06:52 Respiratory Rate 18 06/26/19 06:52 Blood Pressure 113/75 06/26/19 06:52 O2 Sat by Pulse Oximetry (%) Pertinent Admission Physical Exam Findings: General Appearance: No apparent distress HEENTM: Normocephalic, PERRLA, Respiratory: Lungs Clear, Neck: Supple, Trachea in good position Cardiology: S1, S2, Abdominal: +Bowel Sounds Musculoskeletal: full range of Motion, Gait Steady, Neurological: corporate licensed broker II-XII intact, - Treatment Discharge Condition: Outpatient referral accepted (Pt will go to [facility]. Medically stable.) Hospital Course: Patient attended groups, had 1:1 with her counselor, was seen by the psychiatric service. She had no urgent or acute medical problems while in rehab. - Medication Discharge Medications: Ambulatory Orders Quetiapine Fumarate [Seroquel] 200 mg PO HS 05/31/19 Quetiapine Fumarate [Seroquel -] 50 mg PO DAILY 06/05/19 Quetiapine Fumarate [Seroquel -] 50 mg PO DAILY #30 tablet 06/25/19 Quetiapine Fumarate [Seroquel -] 200 mg PO HS #30 tablet 06/25/19 - Medication-Assisted Treatment (MAT) Medication-Assisted Treatment (MAT): No - Discharge Instructions Diet, activity, other medical instructions: Diet: as tolerated Activity: as tolerated Other medical instructions: - Diagnosis (1) Alcohol dependence Current Visit: Yes Status: Chronic Qualifiers: Substance use status: uncomplicated Qualified Code(s): F10.20 - Alcohol dependence, uncomplicated (2) Cocaine dependence Current Visit: Yes Status: Chronic Qualifiers: Substance use status: uncomplicated Qualified Code(s): F14.20 - Cocaine dependence, uncomplicated - Follow-up Referral Minutes to complete discharge: 20 - AMA Did Patient Leave Against Medical Advice: No Additional Comments: Patient did not have prescriptions for medical conditions that needed to be transmitted to the pharmacy.
[2019-06-26] MEDS: LIDOCAINE 5% TOPICAL PATCH TP SCH (09:05)
[2019-06-26] MEDS: PRENATAL VITAMINS W/ FOLIC ACID TABLET (FP) PO SCH (09:05)
[2019-06-26] MEDS: QUEtiapine FUMARATE 50 MG TABLET PO SCH (09:05)
[2019-06-26] MEDS: NICOTINE 21 MG/24 HOURS TOPICAL PATCH TD SCH (09:05)
[2019-06-26] MEDS: PANTOPRAZOLE 40 MG TABLET PO SCH (09:05)
== END 2019-06-26 09:09 | disposition home or self-care (01) | DRG 772 ==
LOC: YASAS 10:50 → Y3E 10:51
PROVIDERS: ADMIT Neuromusculoskeletal Medicine & OMM; ATTEND Neuromusculoskeletal Medicine & OMM
PROC: HZ42ZZZ Group Counseling for Substance Abuse Treatment, Cognitive-Behavioral (ICD-10-PCS; principal; 2019-06-05)
DX: F10.20 Alcohol dependence, uncomplicated (principal); F14.20 Cocaine dependence, uncomplicated; F17.210 Nicotine dependence, cigarettes, uncomplicated; F25.9 Schizoaffective disorder, unspecified; F41.9 Anxiety disorder, unspecified; F32.9 Major depressive disorder, single episode, unspecified; G47.00 Insomnia, unspecified; R76.11 Nonspecific reaction to tuberculin skin test without active tuberculosis

== ENCOUNTER 2020-01-06 12:46 | Inpatient (IN) | payer OTHER ==
--- NOTE | 2020-01-06 20:05 | BHS.RME ---
Substance Use & Tx History - Substance Use History Alcohol Substance amount: 1 pint of vodka Frequency of use: Daily Substance route: Oral Date of Last Use: 01/06/20 Cocaine-Crack Substance amount: 30$ Frequency of use: More than 3 times per week Substance route: Smoking Date of Last Use: 01/06/20 - Last Treatment Date of last treatment: [facility] 06/05/19 to 06/26/19 Where was last treatment: Rehab Physical/Psych/Mental Status - Behavior Eye Contact: Normal - Cooperativeness Cooperativeness: Cooperative - Thinking Thought Processes: Logical Thought content: Future oriented - Physical Health Problems Is patient presently having any pain?: No Does patient presently have any injuries (include location): No Does patient currently have a fever: No CIWA Nausea/Vomitin Muscle Tremors: 3 Anxiety: 3 Agitation: 3 Paroxysmal Sweats: 1-Minimal Palms Moist Orientation: 0-Oriented Tacttile Disturbances: 1-Very Mild Itch/Numbness Auditory Disturbances: 0-None Visual Disturbances: 0-None Headache: 2-Mild CIWA-Ar Total Score: 15
--- NOTE | 2020-01-06 20:11 | HP ---
CIWA Score Nausea/Vomitin Muscle Tremors: 3 Anxiety: 3 Agitation: 3 Paroxysmal Sweats: 1-Minimal Palms Moist Orientation: 0-Oriented Tacttile Disturbances: 1-Very Mild Itch/Numbness Auditory Disturbances: 0-None Visual Disturbances: 0-None Headache: 2-Mild CIWA-Ar Total Score: 15 - Admission Criteria OASAS Guidelines: Admission for Medically Managed Detox: Requires at least one of the followin. CIWA greater than 12 2. Seizures within the past 24 hours 3. Delirium tremens within the past 24 hours 4. Hallucinations within the past 24 hours 5. Acute intervention needed for co occurring medical disorder 6. Acute intervention needed for co occurring psychiatric disorder 7. Severe withdrawal that cannot be handled at a lower level of care (continued vomiting, continued diarrhea, abnormal vital signs) requiring intravenous medication and/or fluids 8. Admitting History and Physical - Admission Chief Complaint: i need help to stop drinking alcohol and crack History of Present Illness: this 49 years female patient with alcohol,crack dependence seeking detox History Source: Patient Limitations to Obtaining History: No Limitations - Past Medical History Pulmonary: Yes: Asthma ...LMP: 06/06/16 ...: No Psych: Yes: Depression Endocrine: Yes: Other (prediabetes) - Smoking History Smoking history: Current every day smoker Have you smoked in the past 12 months: Yes Aproximately how many cigarettes per day: 20 - Alcohol/Substance Use Hx Alcohol Use: Yes History of Substance Use: reports: Cocaine Date of Last Use: 01/06/20 - Social History Usual Living Arrangement: Yes: Other (homeless) Do you think of yourself as: Straight/Heterosexual ADL: Support Services Occupation: unemployed History of Recent Travel: No Other Social History: unemployed,no legal issue Admission ROS [facility] Chief Complaint: i need help to stop drinking alcohol,crack dependence Allergies/Adverse Reactions: Allergies Allergy/AdvReac Type Severity Reaction Status Date / Time No Known Allergies Allergy Verified 05/31/19 17:42 History of Present Illness: this 49 years old female with alcohol and crack dependence seeking detox,withdrawal symptom, multiple admissions in detox and rehab,last rehab [facility] 06/05/19 to 06/26/19 obese 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 Exam Limitations: No Limitations - Ebola screening Have you traveled outside of the country in the last 21 days: No Have you had contact with anyone from an Ebola affected area: No Do you have a fever: No - Review of Systems Constitutional: Loss of Appetite, Malaise, Changes in sleep EENT: reports: No Symptoms Reported Respiratory: reports: No Symptoms reported, Other (asthma) Cardiac: reports: No Symptoms Reported GI: reports: Nausea, Poor Appetite, Abdominal cramping : reports: No Symptoms Reported Musculoskeletal: reports: Back Pain, Muscle Pain Integumentary: reports: Dryness Neuro: reports: Headache, Tremors Endocrine: reports: No Symptoms Reported Hematology: reports: No Symptoms Reported Psychiatric: reports: No Sypmtoms Reported, Judgement Intact, Mood/Affect Appropiate, Orientated x3, Depressed Other Systems: Reviewed and Negative Patient History - Patient Medical History Hx Anemia: No Hx Asthma: Yes (on albuterol inhaler) Hx Chronic Obstructive Pulmonary Disease (COPD): No Hx Cancer: No Hx Cardiac Disorders: No Hx Congestive Heart Failure: No Hx Hypertension: No Hx Hypercholesterolemia: No Hx Pacemaker: No HX Cerebrovascular Accident: No Hx Seizures: No Hx Dementia: No Hx Diabetes: No Hx Gastrointestinal Disorders: No Hx Liver Disease: No Hx Genitourinary Disorders: No Hx Sexually Transmitted Disorders: No Hx Renal Disease (ESRD): No Hx Thyroid Disease: No Hx Human Immunodeficiency Virus (HIV): No ( NEGATIVE ) Hx Hepatitis C: No Hx Depression: Yes Hx Suicide Attempt: No Hx Bipolar Disorder: No Hx Schizophrenia: Yes Other Medical History: no suicidal,no homicidal - Patient Surgical History Past Surgical History: No Hx Neurologic Surgery: No Hx Cataract Extraction: No Hx Cardiac Surgery: No Hx Lung Surgery: No Hx Breast Surgery: No Hx Breast Biopsy: No Hx Abdominal Surgery: No Hx Appendectomy: No Hx Cholecystectomy: No Hx Genitourinary Surgery: No Hx Section: No Hx Orthopedic Surgery: No Hx Hysterectomy: No Anesthesia Reaction: No - PPD History Previous Implant?: Yes Documented Results: Positive w/o proof Date: 04/23/18 PPD to be Administered?: No - Reproductive History Patient is a Female of Child Bearing Age (11 -55 yrs old): Yes Last Menstrual Period: 06/06/16 Patient : No - Smoking Cessation Smoking history: Current every day smoker Have you smoked in the past 12 months: Yes Aproximately how many cigarettes per day: 20 Cigars Per Day: 0 Hx Chewing Tobacco Use: No Initiated information on smoking cessation: Yes 'Breaking Loose' booklet given: 01/06/20 - Substance & Tx. History Hx Alcohol Use: Yes Hx Substance Use: Yes Substance Use Type: Alcohol, Cocaine Hx Substance Use Treatment: Yes ([facility] 06/05/19 to 06/26/19) - Substances abused Alcohol Substance route: Oral Frequency: Daily Amount used: 1 pint of vodka Age of first use: 19 Date of last use: 01/06/20 Crack Substance route: Smoking Frequency: 3-6 times per week Amount used: 30$ Age of first use: 19 Date of last use: 01/06/20 Cocaine Other (specify): crack Substance route: Smoking Frequency: Daily Amount used: 20 dollars Age of first use: 19 Date of last use: 01/06/20 Admission Physical Exam [facility] - Vital Signs Vital Signs: t96.6,p86,bp140/86,r20 - Physical General Appearance: Yes: Obese, Tremorous, Irritable, Anxious HEENTM: Yes: Normal ENT Inspection, JENNYFER, Pharynx Normal Respiratory: Yes: Lungs Clear, Normal Breath Sounds, No Respiratory Distress Neck: Yes: Within Normal Limits, Supple, Trachea in good position Breast: Yes: Breast Exam Deferred Cardiology: Yes: Within Normal Limits, Regular Rhythm, Regular Rate, S1, S2 Abdominal: Yes: Within Normal Limits, Non Tender, Soft Genitourinary: Yes: Within Normal Limits Back: Yes: Muscle Spasm Musculoskeletal: Yes: Back pain, Muscle Pain Extremities: Yes: Tremors 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 Followed by [facility] team in [facility]. On medications. (5) Positive PPD Current Visit: No Status: Resolved (6) Depression Current Visit: Yes Status: Acute Cleared for Admission S - Detox or Rehab [facility] Level of Care: Medically Managed Detox Regimen/Protocol: Librium Breathalyzer - Breathalyzer Breathalyzer: 0 Urine Drug Screen - Test Device Lot number: [id number] Expiration date: 07/21/20 - Control Is test valid?: Yes - Results Drug screen NEGATIVE: No Urine drug screen results: THOMAS-Cocaine Inpatient Rehab Admission - Rehab Decision to Admit Inpatient rehab admission?: No
[2020-01-06 20:28] VITALS: BMI 41.0
[2020-01-06] MEDS ORDERED: IBUPROFEN 400 MG TABLET (FP) PO PRN (20:28)
[2020-01-06] MEDS ORDERED: BISMUTH SUBSALICYLATE 524 MG/30 ML UD PO PRN (20:28)
[2020-01-06] MEDS ORDERED: MAGNESIUM CITRATE 300 ML BOTTLE PO PRN (20:28)
[2020-01-06] MEDS ORDERED: NICOTINE POLACRILEX 2 MG GUM BUC PRN (20:28)
[2020-01-06] MEDS ORDERED: METHOCARBAMOL 500 MG TABLET PO PRN (20:28)
[2020-01-06] MEDS ORDERED: ONDANSETRON *ODT* 4 MG TABLET SL ONE (20:28)
[2020-01-06] MEDS ORDERED: MAGNESIUM HYDROX 2400MG/30ML ORAL SUSPENSION 30 ML CUP PO PRN (20:28)
[2020-01-06] MEDS ORDERED: chlordiazePOXIDE HCL 25 MG CAPSULE PO PRN (20:28)
[2020-01-06] MEDS ORDERED: MAG HYDROX/AL HYDROX/SIMETH 30 ML UNIT-DOSE CUP PO PRN (20:28)
[2020-01-06] MEDS ORDERED: ACETAMINOPHEN 325 MG TABLET (FP) PO PRN ×2 (20:28)
[2020-01-06] MEDS: hydrOXYzine PAMOATE 25 MG CAPSULE (FP) PO SCH (21:30)
[2020-01-06] MEDS: NICOTINE 21 MG/24 HOURS TOPICAL PATCH TD SCH (21:31)
[2020-01-06] MEDS: THIAMINE HCL 100 MG TABLET (FP) PO SCH (22:37)
[2020-01-06] MEDS: chlordiazePOXIDE HCL 25 MG CAPSULE PO SCH (22:37)
[2020-01-06] MEDS: MELATONIN 5 MG TABLETS PO SCH (22:37)
[2020-01-07] MEDS: hydrOXYzine PAMOATE 25 MG CAPSULE (FP) PO SCH ×5 (06:53→22:21)
[2020-01-07] MEDS: chlordiazePOXIDE HCL 25 MG CAPSULE PO SCH ×4 (06:53→22:19)
[2020-01-07 10:38] LABS: HEMATOCRIT 35.4 % (32.4-45.2); HEMOGLOBIN 11.1 GM/dL (10.7-15.3); MCH 26.7 pg (25.7-33.7); MCHC 31.2 g/dl (32.0-36.0); MEAN CELL VOLUME 85.6 fl (80-96); MEAN PLT VOLUME 7.9 fl (7.5-11.1); PLATELET COUNT 304 K/MM3 (134-434); RBC 4.14 M/mm3 (3.60-5.2); RDW 15.4 % (11.6-15.6); WHITE BLOOD COUNT 4.3 K/mm3 (4.0-10.0)
[2020-01-07 10:43] LABS: ALBUMIN 3.3 g/dl (3.4-5.0); CALCIUM 8.2 mg/dL (8.5-10.1); CREATININE 0.7 mg/dL (0.55-1.3); POTASSIUM 4.5 mmol/L (3.5-5.1); TOT PROT 6.6 g/dl (6.4-8.2)
[2020-01-07 10:53] LABS: BILIRUBIN,TOTAL 1.2 mg/dL (0.2-1)
[2020-01-07] MEDS: NICOTINE 21 MG/24 HOURS TOPICAL PATCH TD SCH (11:16)
[2020-01-07] MEDS: PRENATAL VITAMINS W/ FOLIC ACID TABLET (FP) PO SCH (11:16)
[2020-01-07] MEDS: MENTHOL/PHENOL 1 EACH UD MM PRN (11:19)
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
[2020-01-07] MEDS ORDERED: QUEtiapine FUMARATE 300 MG TABLET PO ONE (11:34)
--- NOTE | 2020-01-07 17:58 | PN ---
S CIWA - CIWA Score Nausea/Vomitin Muscle Tremors: 2 Anxiety: 3 Agitation: 2 Paroxysmal Sweats: 3 Orientation: 0-Oriented Tacttile Disturbances: 0-None Auditory Disturbances: 0-None Visual Disturbances: 0-None Headache: 0-None Present CIWA-Ar Total Score: 12 BHS Progress Note (SOAP) Subjective: Headache Objective: 01/07/20 17:53 Last Vital Signs Temp Pulse Resp BP Pulse Ox 97.1 F L 95 H 16 121/71 97 01/07/20 13:16 01/07/20 13:16 01/07/20 13:16 01/07/20 13:16 01/07/20 13:16 Laboratory Tests 01/06/20 01/07/20 01/07/20 20:04 08:00 08:00 WBC 4.3 RBC 4.14 Hgb 11.1 Hct 35.4 MCV 85.6 MCH 26.7 MCHC 31.2 L RDW 15.4 Plt Count 304 MPV 7.9 Sodium Potassium Chloride Carbon Dioxide Anion Gap BUN Creatinine Est GFR (CKD-EPI)AfAm Est GFR (CKD-EPI)NonAf Random Glucose Calcium Total Bilirubin AST ALT Alkaline Phosphatase Total Protein Albumin Syphilis Serology Non-reactive COVID-19 (EMMETT) Not detected 01/07/20 08:00 WBC RBC Hgb Hct MCV MCH MCHC RDW Plt Count MPV Sodium 142 Potassium 4.5 Chloride 109 H Carbon Dioxide 26 Anion Gap 7 L BUN 9.0 Creatinine 0.7 Est GFR (CKD-EPI)AfAm 118.74 Est GFR (CKD-EPI)NonAf 102.45 Random Glucose 118 H Calcium 8.2 L Total Bilirubin 1.2 H AST 13 L ALT 28 Alkaline Phosphatase 73 Total Protein 6.6 Albumin 3.3 L Syphilis Serology COVID-19 ([facility]METT) Labs reviewed: hyperglycemia hypocalcemia, elevated total bilirubin Assessment: 01/07/20 17:55 Withdrawal sxs Noted with hyperglycemia, hypocalcemia, elevated total bilirubin Plan: Continue detox Encourage PO water intake hyperglycemia: denies DM, repeat fasting glucose, send A1c Hypocalcemia: start calcium carbonate 650mg PO bid x 3 days Elevated total bilirubin: repeat total bilirubin serum (CMP, A1c ordered in AM)
[2020-01-07] MEDS: CALCIUM CARBONATE 650 MG TABLET PO SCH (22:18)
[2020-01-07] MEDS: THIAMINE HCL 100 MG TABLET (FP) PO SCH (22:19)
[2020-01-07] MEDS: QUEtiapine FUMARATE 400 MG TABLET PO SCH (22:19)
[2020-01-07] MEDS: MELATONIN 5 MG TABLETS PO SCH (22:21)
[2020-01-08] MEDS: chlordiazePOXIDE HCL 25 MG CAPSULE PO SCH ×4 (05:38→22:14)
[2020-01-08] MEDS: hydrOXYzine PAMOATE 25 MG CAPSULE (FP) PO SCH (05:38)
[2020-01-08] MEDS ORDERED: hydrOXYzine PAMOATE 25 MG CAPSULE (FP) PO PRN (08:55)
[2020-01-08] MEDS: CALCIUM CARBONATE 650 MG TABLET PO SCH ×2 (10:45→22:14)
[2020-01-08] MEDS: NICOTINE 21 MG/24 HOURS TOPICAL PATCH TD SCH (10:46)
[2020-01-08] MEDS: PRENATAL VITAMINS W/ FOLIC ACID TABLET (FP) PO SCH (10:46)
[2020-01-08] MEDS: QUEtiapine FUMARATE 300 MG TABLET PO SCH (10:49)
--- NOTE | 2020-01-08 13:06 | PN ---
S CIWA - CIWA Score Nausea/Vomitin-No Nausea/No Vomiting Muscle Tremors: 3 Anxiety: 2 Agitation: 2 Paroxysmal Sweats: 2 Orientation: 0-Oriented Tacttile Disturbances: 0-None Auditory Disturbances: 0-None Visual Disturbances: 0-None Headache: 0-None Present CIWA-Ar Total Score: 9 BHS Progress Note (SOAP) Subjective: sweats shakes tired Objective: 01/08/20 13:05 Vital Signs Temperature 97.1 F L 01/08/20 05:21 Pulse Rate 96 H 01/08/20 05:21 Respiratory Rate 18 01/08/20 05:21 Blood Pressure 108/74 01/08/20 05:21 O2 Sat by Pulse Oximetry (%) 97 01/08/20 05:21 Laboratory Tests 01/06/20 01/06/20 01/07/20 20:04 21:05 08:00 WBC RBC Hgb Hct MCV MCH MCHC RDW Plt Count MPV Sodium Potassium Chloride Carbon Dioxide Anion Gap BUN Creatinine Est GFR (CKD-EPI)AfAm Est GFR (CKD-EPI)NonAf Random Glucose Calcium Total Bilirubin AST ALT Alkaline Phosphatase Total Protein Albumin POC Urine HCG, Qual Negative Syphilis Serology Non-reactive COVID-19 ([facility]METT) Not detected 01/07/20 01/07/20 08:00 08:00 WBC 4.3 RBC 4.14 Hgb 11.1 Hct 35.4 MCV 85.6 MCH 26.7 MCHC 31.2 L RDW 15.4 Plt Count 304 MPV 7.9 Sodium 142 Potassium 4.5 Chloride 109 H Carbon Dioxide 26 Anion Gap 7 L BUN 9.0 Creatinine 0.7 Est GFR (CKD-EPI)AfAm 118.74 Est GFR (CKD-EPI)NonAf 102.45 Random Glucose 118 H Calcium 8.2 L Total Bilirubin 1.2 H AST 13 L ALT 28 Alkaline Phosphatase 73 Total Protein 6.6 Albumin 3.3 L POC Urine HCG, Qual Syphilis Serology COVID-19 ([facility]METT) aaox3 lying down no acute distress 01/08/20 13:05 Assessment: 01/08/20 13:05 withdrawals Plan: continue detox
[2020-01-08 13:19] LABS: ALBUMIN 2.9 g/dl (3.4-5.0); BILIRUBIN,TOTAL 0.9 mg/dL (0.2-1); BLOOD UREA NITROGEN 12.4 mg/dL (7-18); CALCIUM 8.3 mg/dL (8.5-10.1); CREATININE 0.6 mg/dL (0.55-1.3); POTASSIUM 4.5 mmol/L (3.5-5.1)
[2020-01-08 16:57] LABS: URINE APPEARANCE Clear; URINE BILIRUBIN Negative (NEGATIVE); URINE COLOR Yellow; URINE GLUCOSE (UA) Negative (NEGATIVE); URINE KETONE Negative (NEGATIVE); URINE LEUK ESTERASE 2+ (NEGATIVE); URINE NITRITE Negative (NEGATIVE); URINE PROTEIN Negative (NEGATIVE); URINE UROBILINOGEN 0.2 mg/dL (0.2-1.0)
[2020-01-08] MEDS: QUEtiapine FUMARATE 400 MG TABLET PO SCH (22:14)
[2020-01-08] MEDS: THIAMINE HCL 100 MG TABLET (FP) PO SCH (22:14)
[2020-01-08] MEDS: MONTELUKAST NA 10 MG TABLET PO SCH (22:14)
[2020-01-08] MEDS: MELATONIN 5 MG TABLETS PO SCH (22:14)
[2020-01-09] MEDS ORDERED: chlordiazePOXIDE HCL 10 MG CAPSULE PO PRN
[2020-01-09] MEDS: chlordiazePOXIDE HCL 10 MG CAPSULE PO SCH ×4 (07:26→22:23)
[2020-01-09] MEDS: CALCIUM CARBONATE 650 MG TABLET PO SCH ×2 (10:18→22:23)
[2020-01-09] MEDS: NICOTINE 21 MG/24 HOURS TOPICAL PATCH TD SCH (10:19)
[2020-01-09] MEDS: QUEtiapine FUMARATE 300 MG TABLET PO SCH (10:19)
[2020-01-09] MEDS: PRENATAL VITAMINS W/ FOLIC ACID TABLET (FP) PO SCH (10:19)
--- NOTE | 2020-01-09 10:39 | PN ---
S CIWA - CIWA Score Nausea/Vomitin-No Nausea/No Vomiting Muscle Tremors: None Anxiety: 1-Mildly Anxious Agitation: 0-Normal Activity Paroxysmal Sweats: 2 Orientation: 0-Oriented Tacttile Disturbances: 0-None Auditory Disturbances: 0-None Visual Disturbances: 0-None Headache: 0-None Present CIWA-Ar Total Score: 3 BHS Progress Note (SOAP) Subjective: headache sweats Objective: 01/09/20 10:39 Vital Signs Temperature 98.2 F 01/09/20 06:10 Pulse Rate 88 01/09/20 06:10 Respiratory Rate 20 01/09/20 06:10 Blood Pressure 118/71 01/09/20 06:10 O2 Sat by Pulse Oximetry (%) 99 01/09/20 06:10 aaox3 lying in bed no acute distress Assessment: 01/09/20 10:39 withdrawals Plan: continue detox
[2020-01-09] MEDS: QUEtiapine FUMARATE 400 MG TABLET PO SCH (22:23)
[2020-01-09] MEDS: THIAMINE HCL 100 MG TABLET (FP) PO SCH (22:23)
[2020-01-09] MEDS: MONTELUKAST NA 10 MG TABLET PO SCH (22:23)
[2020-01-09] MEDS: MELATONIN 5 MG TABLETS PO SCH (22:24)
[2020-01-09] MEDS: MENTHOL/PHENOL 1 EACH UD MM PRN (22:25)
[2020-01-10] MEDS: chlordiazePOXIDE HCL 10 MG CAPSULE PO SCH ×2 (06:39→18:12)
[2020-01-10] MEDS: MENTHOL/PHENOL 1 EACH UD MM PRN (09:12)
[2020-01-10] MEDS: NICOTINE 21 MG/24 HOURS TOPICAL PATCH TD SCH (10:17)
[2020-01-10] MEDS: PRENATAL VITAMINS W/ FOLIC ACID TABLET (FP) PO SCH (10:17)
[2020-01-10] MEDS: CALCIUM CARBONATE 650 MG TABLET PO SCH (10:17)
[2020-01-10] MEDS: QUEtiapine FUMARATE 300 MG TABLET PO SCH (10:17)
--- NOTE | 2020-01-10 10:39 | PN ---
[facility] CIWA - CIWA Score Nausea/Vomitin-No Nausea/No Vomiting Muscle Tremors: 1-None Visible, but [place] Anxiety: 1-Mildly Anxious Agitation: 0-Normal Activity Paroxysmal Sweats: No Perspiration Orientation: 0-Oriented Tacttile Disturbances: 0-None Auditory Disturbances: 0-None Visual Disturbances: 0-None Headache: 0-None Present CIWA-Ar Total Score: 2 BHS Progress Note (SOAP) Subjective: feeling better little anxious Objective: 01/10/20 10:38 Vital Signs Temperature 97.5 F L 01/10/20 06:01 Pulse Rate 100 H 01/10/20 06:01 Respiratory Rate 20 01/10/20 06:01 Blood Pressure 120/60 01/10/20 06:01 O2 Sat by Pulse Oximetry (%) 97 01/10/20 06:01 aaox3 ambulating no acute distress Assessment: 01/10/20 10:38 mild withdrawals Plan: continue detox d/c in am
[2020-01-10] MEDS: MONTELUKAST NA 10 MG TABLET PO SCH (21:45)
[2020-01-10] MEDS: THIAMINE HCL 100 MG TABLET (FP) PO SCH (21:45)
[2020-01-10] MEDS: QUEtiapine FUMARATE 400 MG TABLET PO SCH (21:45)
[2020-01-10] MEDS: MELATONIN 5 MG TABLETS PO SCH (21:47)
[2020-01-11] MEDS ORDERED: chlordiazePOXIDE HCL 10 MG CAPSULE PO ONE (05:00)
--- NOTE | 2020-01-11 08:45 | DS ---
[facility] Detox Discharge Summary Admission Date: 01/06/20 Discharge Date: 01/11/20 - History Present History: Alcohol Dependence, Cocaine Dependence - Physical Exam Results Vital Signs: Vital Signs Temperature 97.8 F 01/11/20 05:50 Pulse Rate 92 H 01/11/20 05:50 Respiratory Rate 18 01/11/20 05:50 Blood Pressure 110/63 01/11/20 05:50 O2 Sat by Pulse Oximetry (%) 96 01/11/20 05:50 Pertinent Admission Physical Exam Findings: Vital Signs Temperature 97.8 F 01/11/20 05:50 Pulse Rate 92 H 01/11/20 05:50 Respiratory Rate 18 01/11/20 05:50 Blood Pressure 110/63 01/11/20 05:50 O2 Sat by Pulse Oximetry (%) 96 01/11/20 05:50 Laboratory Tests 01/06/20 01/06/20 01/07/20 20:04 21:05 08:00 WBC RBC Hgb Hct MCV MCH MCHC RDW Plt Count MPV Sodium Potassium Chloride Carbon Dioxide Anion Gap BUN Creatinine Est GFR (CKD-EPI)AfAm Est GFR (CKD-EPI)NonAf Random Glucose Hemoglobin A1c % Calcium Total Bilirubin AST ALT Alkaline Phosphatase Total Protein Albumin Urine Color Urine Appearance Urine pH Ur Specific [place] Urine Protein Urine Glucose (UA) Urine Ketones Urine Blood Urine Nitrite Urine Bilirubin Urine Urobilinogen Ur Leukocyte Esterase POC Urine HCG, Qual Negative Syphilis Serology Non-reactive COVID-19 ([facility]) Not detected 01/07/20 01/07/20 01/08/20 08:00 08:00 08:15 WBC 4.3 RBC 4.14 Hgb 11.1 Hct 35.4 MCV 85.6 MCH 26.7 MCHC 31.2 L RDW 15.4 Plt Count 304 MPV 7.9 Sodium 142 144 Potassium 4.5 4.5 Chloride 109 H 111 H Carbon Dioxide 26 28 Anion Gap 7 L 5 L BUN 9.0 12.4 Creatinine 0.7 0.6 Est GFR (CKD-EPI)AfAm 118.74 124.92 Est GFR (CKD-EPI)NonAf 102.45 107.78 Random Glucose 118 H 101 Hemoglobin A1c % Calcium 8.2 L 8.3 L Total Bilirubin 1.2 H 0.9 AST 13 L 9 L ALT 28 24 Alkaline Phosphatase 73 66 Total Protein 6.6 6.0 L Albumin 3.3 L 2.9 L Urine Color Urine Appearance Urine pH Ur Specific [place] Urine Protein Urine Glucose (UA) Urine Ketones Urine Blood Urine Nitrite Urine Bilirubin Urine Urobilinogen Ur Leukocyte Esterase POC Urine HCG, Qual Syphilis Serology COVID-19 ([facility]T) 01/08/20 01/08/20 08:15 14:00 WBC RBC Hgb Hct MCV MCH MCHC RDW Plt Count MPV Sodium Potassium Chloride Carbon Dioxide Anion Gap BUN Creatinine Est GFR (CKD-EPI)AfAm Est GFR (CKD-EPI)NonAf Random Glucose Hemoglobin A1c % 6.1 Calcium Total Bilirubin AST ALT Alkaline Phosphatase Total Protein Albumin Urine Color Yellow Urine Appearance Clear Urine pH 5.0 Ur Specific [place] 1.015 Urine Protein Negative Urine Glucose (UA) Negative Urine Ketones Negative Urine Blood Trace-intact Urine Nitrite Negative Urine Bilirubin Negative Urine Urobilinogen 0.2 Ur Leukocyte Esterase 2+ H POC Urine HCG, Qual Syphilis Serology COVID-19 ([facility]METT) aaox3 ambulating no acute distress lungs CTA - Treatment Hospital Course: Detox Protocol Followed, Detoxed Safely, Responded well, Discharged Condition Good, Rehab Referral Accepted - Medication Discharge Medications: Ambulatory Orders Melatonin 5 mg PO DAILY 01/06/20 Montelukast Na [Singulair -] 10 mg PO HS 01/06/20 Multivitamins [Multivit ([facility] Formulary)] 1 tablet PO DAILY 01/06/20 Quetiapine Fumarate [Seroquel -] 400 mg PO BID 01/06/20 - Diagnosis (1) Alcohol dependence with uncomplicated withdrawal Current Visit: Yes Status: Chronic (2) Cocaine dependence, uncomplicated Current Visit: Yes Status: Chronic (3) Depression Current Visit: Yes Status: Acute (4) Schizoaffective disorder Current Visit: Yes Status: Chronic (5) Substance-induced sleep disorder Current Visit: No Status: Acute (6) Syncope Current Visit: No Status: Acute (7) Cocaine dependence Current Visit: Yes Status: Chronic Qualifiers: Substance use status: uncomplicated Qualified Code(s): F14.20 - Cocaine dependence, uncomplicated (8) Drug-induced mood disorder Current Visit: No Status: Chronic (9) Insomnia Current Visit: No Status: Chronic (10) Nicotine dependence Current Visit: Yes Status: Chronic Qualifiers: Nicotine product type: cigarettes Substance use status: uncomplicated Qualified Code(s): F17.210 - Nicotine dependence, cigarettes, uncomplicated (11) Obesity Current Visit: No Status: Chronic Qualifiers: Obesity classification: adult class 1 (BMI 30 - 34.9) Serious obesity comorbidity presence: without serious comorbidity (12) Substance induced mood disorder Current Visit: No Status: Suspected (13) Positive PPD Current Visit: No Status: Resolved - AMA Did Patient Leave Against Medical Advice: No
[2020-01-11] MEDS: QUEtiapine FUMARATE 300 MG TABLET PO SCH (10:09)
[2020-01-11] MEDS: PRENATAL VITAMINS W/ FOLIC ACID TABLET (FP) PO SCH (10:09)
[2020-01-11] MEDS: NICOTINE 21 MG/24 HOURS TOPICAL PATCH TD SCH (10:10)
[2020-01-11 11:12] VITALS: BP 113/74; PULSE 101; TEMP 98.6
== END 2020-01-11 12:20 | disposition other institution (70) | DRG 774 ==
LOC: YASAS 12:46 → Y6N 20:20
PROVIDERS: ADMIT Allergy & Immunology; ATTEND Allergy & Immunology
PROC: HZ2ZZZZ Detoxification Services for Substance Abuse Treatment (ICD-10-PCS; principal; 2020-01-06)
DX: F10.230 Alcohol dependence with withdrawal, uncomplicated (principal); F14.20 Cocaine dependence, uncomplicated; F17.210 Nicotine dependence, cigarettes, uncomplicated; F25.9 Schizoaffective disorder, unspecified; F19.282 Other psychoactive substance dependence with psychoactive substance-induced sleep disorder; F19.24 Other psychoactive substance dependence with psychoactive substance-induced mood disorder; F32.9 Major depressive disorder, single episode, unspecified; E83.51 Hypocalcemia; E80.6 Other disorders of bilirubin metabolism; G47.00 Insomnia, unspecified; E66.01 Morbid (severe) obesity due to excess calories; Z68.41 Body mass index [BMI] 40.0-44.9, adult; R73.9 Hyperglycemia, unspecified; R76.11 Nonspecific reaction to tuberculin skin test without active tuberculosis; Z59.0 Homelessness
CPT/HCPCS: 36415; 71046-TC-FY; 80053; 81003; 81025; 83036; 85027; 86780; Q0162; U0003

== ENCOUNTER 2020-01-11 12:00 | Inpatient (IN) | payer OTHER ==
--- NOTE | 2020-01-11 12:45 | HP ---
[facility] Rehab Assess/Revision - Admission History Admitted to Rehab from: [facility] - Findings Detox History & Physical reviewed: Yes Concur with findings: Yes Inpatient Rehab Admission - Rehab Decision to Admit Inpatient rehab admission?: Yes - Initial Determination Are CD services needed?: Yes Free of communicable disease: Yes Not in need of hospitalization: Yes - Rehab Admission Criteria Previous failed treatment: Yes Poor recovery environment: Yes Comorbidities: Yes Lacks judgement: Yes Patient is meeting Inpatient Rehab admission criteria:: Yes
[2020-01-11] MEDS ORDERED: MAGNESIUM HYDROX 2400MG/30ML ORAL SUSPENSION 30 ML CUP PO PRN (14:03)
[2020-01-11] MEDS ORDERED: NICOTINE POLACRILEX 2 MG GUM BUC PRN (14:03)
[2020-01-11] MEDS ORDERED: guaiFENesin 200 MG/10 ML 10 ML UNIT-DOSE CUPS PO PRN (14:03)
[2020-01-11] MEDS ORDERED: LOPERAMIDE HCL 2 MG CAPSULE PO PRN (14:03)
[2020-01-11] MEDS ORDERED: P-EPHED 60MG/TRIPROLIDI 2.5MG TABLET PO PRN (14:03)
[2020-01-11] MEDS ORDERED: IBUPROFEN 400 MG TABLET (FP) PO PRN (14:03)
[2020-01-11] MEDS ORDERED: hydrOXYzine PAMOATE 25 MG CAPSULE (FP) PO PRN (14:03)
[2020-01-11] MEDS ORDERED: ACETAMINOPHEN 325 MG TABLET (FP) PO PRN (14:03)
[2020-01-11] MEDS ORDERED: MAGNESIUM CITRATE 300 ML BOTTLE PO PRN (14:03)
[2020-01-11] MEDS ORDERED: METHOCARBAMOL 500 MG TABLET PO PRN (14:05)
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
[2020-01-11] MEDS ORDERED: ALBUTEROL SO4 HFA INHALER IH PRN (15:01)
[2020-01-11] MEDS: QUEtiapine FUMARATE 400 MG TABLET PO SCH (21:47)
[2020-01-11] MEDS: MELATONIN 5 MG TABLETS PO SCH (21:47)
[2020-01-11] MEDS: THIAMINE HCL 100 MG TABLET (FP) PO SCH (21:47)
[2020-01-11] MEDS: MONTELUKAST NA 10 MG TABLET PO SCH (21:47)
[2020-01-12] MEDS: MAG HYDROX/AL HYDROX/SIMETH 30 ML UNIT-DOSE CUP PO PRN ×2 (06:38→21:53)
[2020-01-12] MEDS: NICOTINE 7 MG/24 HOURS TOPICAL PATCH TD SCH (10:11)
[2020-01-12] MEDS: PRENATAL VITAMINS W/ FOLIC ACID TABLET (FP) PO SCH (10:11)
[2020-01-12] MEDS: QUEtiapine FUMARATE 300 MG TABLET PO SCH (10:12)
[2020-01-12] MEDS ORDERED: PT OWN MED DRAWER 7, Y5N ONE (20:00)
[2020-01-12] MEDS: MELATONIN 5 MG TABLETS PO SCH (21:50)
[2020-01-12] MEDS: THIAMINE HCL 100 MG TABLET (FP) PO SCH (21:51)
[2020-01-12] MEDS: MONTELUKAST NA 10 MG TABLET PO SCH (21:51)
[2020-01-12] MEDS: QUEtiapine FUMARATE 400 MG TABLET PO SCH (21:51)
[2020-01-13] MEDS: QUEtiapine FUMARATE 300 MG TABLET PO SCH (09:48)
[2020-01-13] MEDS: PRENATAL VITAMINS W/ FOLIC ACID TABLET (FP) PO SCH (09:48)
[2020-01-13] MEDS: NICOTINE 7 MG/24 HOURS TOPICAL PATCH TD SCH (09:49)
[2020-01-13] MEDS: MAG HYDROX/AL HYDROX/SIMETH 30 ML UNIT-DOSE CUP PO PRN (09:49)
[2020-01-13] MEDS ORDERED: PT OWN MED DRAWER 7, Y5N ONE (19:24)
[2020-01-13] MEDS: QUEtiapine FUMARATE 400 MG TABLET PO SCH (21:20)
[2020-01-13] MEDS: MELATONIN 5 MG TABLETS PO SCH (21:20)
[2020-01-13] MEDS: MONTELUKAST NA 10 MG TABLET PO SCH (21:21)
[2020-01-13] MEDS: THIAMINE HCL 100 MG TABLET (FP) PO SCH (21:21)
[2020-01-13] MEDS: MENTHOL/PHENOL 1 EACH UD MM PRN (21:23)
[2020-01-14] MEDS: PRENATAL VITAMINS W/ FOLIC ACID TABLET (FP) PO SCH (10:14)
[2020-01-14] MEDS: NICOTINE 7 MG/24 HOURS TOPICAL PATCH TD SCH (10:14)
[2020-01-14] MEDS: QUEtiapine FUMARATE 300 MG TABLET PO SCH (10:14)
[2020-01-14] MEDS ORDERED: PT OWN MED DRAWER 7, Y5N ONE (19:02)
[2020-01-14] MEDS: QUEtiapine FUMARATE 400 MG TABLET PO SCH (21:21)
[2020-01-14] MEDS: MONTELUKAST NA 10 MG TABLET PO SCH (21:21)
[2020-01-14] MEDS: THIAMINE HCL 100 MG TABLET (FP) PO SCH (21:21)
[2020-01-14] MEDS: MELATONIN 5 MG TABLETS PO SCH (21:21)
[2020-01-14] MEDS: MENTHOL/PHENOL 1 EACH UD MM PRN (21:22)
[2020-01-15] MEDS: QUEtiapine FUMARATE 300 MG TABLET PO SCH (09:48)
[2020-01-15] MEDS: PRENATAL VITAMINS W/ FOLIC ACID TABLET (FP) PO SCH (09:48)
[2020-01-15] MEDS: MENTHOL/PHENOL 1 EACH UD MM PRN (09:49)
[2020-01-15] MEDS: NICOTINE 7 MG/24 HOURS TOPICAL PATCH TD SCH (09:49)
[2020-01-15] MEDS ORDERED: PT OWN MED DRAWER 7, Y5N ONE (21:32)
[2020-01-15] MEDS: QUEtiapine FUMARATE 400 MG TABLET PO SCH (21:41)
[2020-01-15] MEDS: MONTELUKAST NA 10 MG TABLET PO SCH (21:41)
[2020-01-15] MEDS: THIAMINE HCL 100 MG TABLET (FP) PO SCH (21:42)
[2020-01-15] MEDS: MELATONIN 5 MG TABLETS PO SCH (21:42)
[2020-01-16] MEDS: NICOTINE 7 MG/24 HOURS TOPICAL PATCH TD SCH (09:50)
[2020-01-16] MEDS: PRENATAL VITAMINS W/ FOLIC ACID TABLET (FP) PO SCH (09:50)
[2020-01-16] MEDS: QUEtiapine FUMARATE 300 MG TABLET PO SCH (09:50)
[2020-01-16] MEDS: MENTHOL/PHENOL 1 EACH UD MM PRN (09:51)
[2020-01-16] MEDS ORDERED: PT OWN MED DRAWER 7, Y5N ONE (19:37)
[2020-01-16] MEDS: THIAMINE HCL 100 MG TABLET (FP) PO SCH (21:51)
[2020-01-16] MEDS: QUEtiapine FUMARATE 400 MG TABLET PO SCH (21:51)
[2020-01-16] MEDS: MONTELUKAST NA 10 MG TABLET PO SCH (21:51)
[2020-01-16] MEDS: MAG HYDROX/AL HYDROX/SIMETH 30 ML UNIT-DOSE CUP PO PRN (21:53)
[2020-01-16] MEDS: MELATONIN 5 MG TABLETS PO SCH (21:54)
[2020-01-17] MEDS: PRENATAL VITAMINS W/ FOLIC ACID TABLET (FP) PO SCH (09:23)
[2020-01-17] MEDS: NICOTINE 7 MG/24 HOURS TOPICAL PATCH TD SCH (09:23)
[2020-01-17] MEDS: QUEtiapine FUMARATE 300 MG TABLET PO SCH (09:23)
[2020-01-17] MEDS: MENTHOL/PHENOL 1 EACH UD MM PRN ×2 (09:24→21:38)
[2020-01-17] MEDS: MAG HYDROX/AL HYDROX/SIMETH 30 ML UNIT-DOSE CUP PO PRN (19:36)
[2020-01-17] MEDS: QUEtiapine FUMARATE 400 MG TABLET PO SCH (21:34)
[2020-01-17] MEDS: MONTELUKAST NA 10 MG TABLET PO SCH (21:35)
[2020-01-17] MEDS: MELATONIN 5 MG TABLETS PO SCH (21:35)
[2020-01-17] MEDS ORDERED: PT OWN MED DRAWER 7, Y5N ONE (21:35)
[2020-01-17] MEDS: THIAMINE HCL 100 MG TABLET (FP) PO SCH (21:35)
[2020-01-18] MEDS: PRENATAL VITAMINS W/ FOLIC ACID TABLET (FP) PO SCH (09:55)
[2020-01-18] MEDS: QUEtiapine FUMARATE 300 MG TABLET PO SCH (09:55)
[2020-01-18] MEDS: NICOTINE 7 MG/24 HOURS TOPICAL PATCH TD SCH (09:55)
[2020-01-18] MEDS: MAG HYDROX/AL HYDROX/SIMETH 30 ML UNIT-DOSE CUP PO PRN (09:56)
[2020-01-18] MEDS: MONTELUKAST NA 10 MG TABLET PO SCH (21:34)
[2020-01-18] MEDS: THIAMINE HCL 100 MG TABLET (FP) PO SCH (21:34)
[2020-01-18] MEDS: QUEtiapine FUMARATE 400 MG TABLET PO SCH (21:34)
[2020-01-18] MEDS: MELATONIN 5 MG TABLETS PO SCH (21:34)
[2020-01-18] MEDS: MENTHOL/PHENOL 1 EACH UD MM PRN (21:37)
[2020-01-19] MEDS ORDERED: PT OWN MED DRAWER 7, Y5N ONE ×2 (08:44→19:16)
[2020-01-19] MEDS: QUEtiapine FUMARATE 300 MG TABLET PO SCH (09:11)
[2020-01-19] MEDS: NICOTINE 7 MG/24 HOURS TOPICAL PATCH TD SCH (09:11)
[2020-01-19] MEDS: PRENATAL VITAMINS W/ FOLIC ACID TABLET (FP) PO SCH (09:11)
--- NOTE | 2020-01-19 09:55 | PN ---
S Progress Note Note: PATIENT EVALUATED FOR C/O SORE THROAT. PATIENT HAS BEEN GIVEN CEPASTAT WITH NO RELIEF. ROS: SHE DENIES COUGH, FEVER, HEADACHE AND EARACHE. Vital Signs Temperature 98.2 F 01/19/20 09:00 Pulse Rate 105 H 01/19/20 09:00 Respiratory Rate 18 01/19/20 09:00 Blood Pressure 131/83 01/19/20 09:00 O2 Sat by Pulse Oximetry (%) 99 01/19/20 09:00 PE ALERT AND ORIENTED X 3 SKIN WARM AND DRY +PERRLA, EOMS INTACT BL NECK SUPPLE, NO JVD PHARYNX RED, +2 ENLARGED TONSILS NO VISIBLE EXUDATE EXT FULL ROM, AMB AD SHAUNA NO TREMORS A/P: PHARYNGITIS WILL ORDER THROAT CULTURE AND SENSITIVITY AFTER COLLECTION, AMOXICILLIN 500MG PO TID X 7 DAYS ORDERED CONTINUE CEPASTAT PRN APAP/IBU FOR COMFORT CONTINUE TO MONITOR CLINICALLY
[2020-01-19] MEDS: AMOXICILLIN 500 MG CAPSULE (FP) PO SCH ×2 (13:04→21:15)
[2020-01-19] MEDS: MONTELUKAST NA 10 MG TABLET PO SCH (21:15)
[2020-01-19] MEDS: THIAMINE HCL 100 MG TABLET (FP) PO SCH (21:15)
[2020-01-19] MEDS: QUEtiapine FUMARATE 400 MG TABLET PO SCH (21:15)
[2020-01-19] MEDS: MELATONIN 5 MG TABLETS PO SCH (21:15)
[2020-01-20] MEDS: AMOXICILLIN 500 MG CAPSULE (FP) PO SCH ×3 (06:48→21:22)
[2020-01-20] MEDS: QUEtiapine FUMARATE 300 MG TABLET PO SCH (09:54)
[2020-01-20] MEDS: NICOTINE 7 MG/24 HOURS TOPICAL PATCH TD SCH (09:54)
[2020-01-20] MEDS: PRENATAL VITAMINS W/ FOLIC ACID TABLET (FP) PO SCH (09:54)
[2020-01-20] MEDS: MENTHOL/PHENOL 1 EACH UD MM PRN ×2 (09:56→21:25)
[2020-01-20] MEDS ORDERED: PT OWN MED DRAWER 7, Y5N ONE (13:07)
[2020-01-20] MEDS: QUEtiapine FUMARATE 400 MG TABLET PO SCH (21:22)
[2020-01-20] MEDS: THIAMINE HCL 100 MG TABLET (FP) PO SCH (21:22)
[2020-01-20] MEDS: MONTELUKAST NA 10 MG TABLET PO SCH (21:22)
[2020-01-20] MEDS: MELATONIN 5 MG TABLETS PO SCH (21:23)
[2020-01-21] MEDS: AMOXICILLIN 500 MG CAPSULE (FP) PO SCH ×3 (06:21→21:06)
[2020-01-21] MEDS: QUEtiapine FUMARATE 300 MG TABLET PO SCH (09:51)
[2020-01-21] MEDS: PRENATAL VITAMINS W/ FOLIC ACID TABLET (FP) PO SCH (09:51)
[2020-01-21] MEDS: NICOTINE 7 MG/24 HOURS TOPICAL PATCH TD SCH (09:52)
[2020-01-21] MEDS ORDERED: PT OWN MED DRAWER 7, Y5N ONE ×2 (14:16→20:02)
[2020-01-21] MEDS: MELATONIN 5 MG TABLETS PO SCH (21:06)
[2020-01-21] MEDS: MONTELUKAST NA 10 MG TABLET PO SCH (21:06)
[2020-01-21] MEDS: QUEtiapine FUMARATE 400 MG TABLET PO SCH (21:06)
[2020-01-21] MEDS: THIAMINE HCL 100 MG TABLET (FP) PO SCH (21:07)
[2020-01-22] MEDS: AMOXICILLIN 500 MG CAPSULE (FP) PO SCH (06:42)
[2020-01-22 06:50] VITALS: BP 119/72; PULSE 92; TEMP 97.4
--- NOTE | 2020-01-22 09:56 | DS ---
[facility] Rehab Discharge Summary - [facility] Rehab Discharge Summary Admission Date: 01/11/20 Discharge Date: 01/22/20 - History Present History: Alcohol dependence, Cocaine dependence Pertinent Past History: Obesity schizoaffective Disorder - Discharge Physical Exam Vital Signs: Vital Signs Temperature 97.4 F L 01/22/20 06:30 Pulse Rate 92 H 01/22/20 06:30 Respiratory Rate 18 01/22/20 06:30 Blood Pressure 119/72 01/22/20 06:30 O2 Sat by Pulse Oximetry (%) 98 01/22/20 06:30 Alert o x 3 nad,no resp difficulty, throat wnl,no pain or swelling. oob ambulating with steady gait Active FROM, all extremities Pertinent Admission Physical Exam Findings: Microbiology 01/19/20 11:30 Throat Throat Culture - Preliminary Pending Organism - Treatment Discharge Condition: Discharge condition good Hospital Course: Pt admitted to rehab and discharging today. Pt was seen on 01/19/20 for Throat discomfort-Pharyngitis and started on Amoxicillin. Throat culture pending and pt states she does not want to wait for result. States "I will call the unit in 3 days for the result" and [facility] phone number was given to the patient by the nurse, Marlee Camarillo to call. Pt declined to give her contact Phone number to be reached. Pt met with her counselor this morning and she has been referred to [facility] for CD aftercare. - Medication Discharge Medications: Ambulatory Orders Melatonin 5 mg PO DAILY 01/06/20 Montelukast Na [Singulair -] 10 mg PO HS 01/06/20 Multivitamins [Multivit ([facility] Formulary)] 1 tablet PO DAILY 01/06/20 Albuterol Sulfate Inhaler - [Ventolin HFA Inhaler -] 2 inh PO Q4H PRN 01/11/20 Amoxicillin - [Amoxicillin 500mg Capsule -] 500 mg PO TID 5 Days #10 capsule 01/22/20 Quetiapine Fumarate [Seroquel -] 300 mg PO DAILY #30 mg 01/22/20 Quetiapine Fumarate [Seroquel -] 400 mg PO HS #30 mg 01/22/20 - Medication-Assisted Treatment (MAT) Medication-Assisted Treatment (MAT): No - Discharge Instructions Diet, activity, other medical instructions: Diet:Regular Activity: oob ad yana Other medical instructions:Follow up with CD aftercare as scheduled Follow up with your primary care provider Dr. Izabel Bolden @ [place], [place] for medical management. - Diagnosis (1) Alcohol use disorder Status: Chronic (2) Cocaine dependence Status: Chronic Qualifiers: Substance use status: uncomplicated Qualified Code(s): F14.20 - Cocaine dependence, uncomplicated (3) Nicotine dependence Status: Chronic Qualifiers: Nicotine product type: cigarettes Substance use status: uncomplicated Qualified Code(s): F17.210 - Nicotine dependence, cigarettes, uncomplicated (4) Obesity Status: Chronic Qualifiers: Obesity classification: adult class 3 (BMI >= 40) Serious obesity comorbidity presence: without serious comorbidity Body mass index: BMI 45.0- 49.9 - Follow-up Referral Minutes to complete discharge: 20 - AMA Did Patient Leave Against Medical Advice: No
--- NOTE | 2020-01-22 10:01 | PN ---
[facility] Progress Note Note: Patient is discharged today. Scripts for 30 days supply of medications( Seroquel 300 mg/day & 400 mg/hs) are electronically transmitted to [facility], [address] [place] [address] [id number], [place] [address]
[2020-01-22] MEDS: NICOTINE 7 MG/24 HOURS TOPICAL PATCH TD SCH (10:04)
[2020-01-22] MEDS: QUEtiapine FUMARATE 300 MG TABLET PO SCH (10:04)
[2020-01-22] MEDS: PRENATAL VITAMINS W/ FOLIC ACID TABLET (FP) PO SCH (10:04)
== END 2020-01-22 10:22 | disposition home or self-care (01) | DRG 772 ==
LOC: YASAS 12:00 → Y3E 12:01
PROVIDERS: ADMIT Allergy & Immunology; ATTEND Allergy & Immunology
PROC: HZ42ZZZ Group Counseling for Substance Abuse Treatment, Cognitive-Behavioral (ICD-10-PCS; principal; 2020-01-11)
DX: F10.20 Alcohol dependence, uncomplicated (principal); F14.20 Cocaine dependence, uncomplicated; F17.210 Nicotine dependence, cigarettes, uncomplicated; F25.9 Schizoaffective disorder, unspecified; J02.9 Acute pharyngitis, unspecified; Z56.0 Unemployment, unspecified; Z59.0 Homelessness
CPT/HCPCS: 87070; 87077

== ENCOUNTER 2023-08-31 09:24 | Inpatient (IN) | payer OTHER ==
[2023-08-31 10:10] VITALS: BMI 33.8
[2023-08-31] MEDS ORDERED: DICYCLOMINE HCL 10 MG CAPSULE PO PRN (10:45)
[2023-08-31] MEDS ORDERED: NALOXONE HCL 0.4 MG/ML VIAL IM PRN (10:45)
[2023-08-31] MEDS ORDERED: MAG HYDROX/AL HYDROX/SIMETH 30 ML UNIT-DOSE CUP PO PRN (10:45)
[2023-08-31] MEDS ORDERED: BISMUTH SUBSALICYLATE 524 MG/30 ML PO PRN (10:45)
[2023-08-31] MEDS ORDERED: LOPERAMIDE HCL 2 MG CAPSULE PO PRN (10:45)
[2023-08-31] MEDS ORDERED: chlordiazePOXIDE HCL 25 MG CAPSULE PO PRN (10:45)
[2023-08-31] MEDS ORDERED: hydrOXYzine PAMOATE 25 MG CAPSULE (FP) PO PRN (10:45)
[2023-08-31] MEDS ORDERED: BENZONATATE 200 MG CAPSULE PO PRN (10:45)
[2023-08-31] MEDS ORDERED: NALOXONE HCL (KLOXXADO) 8 MG SPRAY NS PRN (10:45)
[2023-08-31] MEDS ORDERED: IBUPROFEN 400 MG TABLET (FP) PO PRN (10:45)
[2023-08-31] MEDS ORDERED: guaiFENesin 600 MG TABLET.ER (FP) PO PRN (10:45)
[2023-08-31] MEDS ORDERED: ONDANSETRON *ODT* 4 MG TABLET SL PRN (10:45)
[2023-08-31] MEDS ORDERED: ALBUTEROL SO4 HFA INHALER IH PRN (10:47)
[2023-08-31] MEDS ORDERED: NICOTINE 14 MG/24 HOURS TOPICAL PATCH TD ONE (11:07)
[2023-08-31] MEDS: NICOTINE 14 MG/24 HOURS TOPICAL PATCH TD SCH (11:12)
[2023-08-31] MEDS: chlordiazePOXIDE HCL 25 MG CAPSULE PO SCH (17:48)
[2023-08-31] MEDS: BENZOCAINE/MENTHOL (CHLORASEPTIC ) LOZENGE MM PRN (17:49)
[2023-08-31] MEDS: MELATONIN 5 MG TABLETS PO SCH (22:43)
[2023-08-31] MEDS: THIAMINE HCL 100 MG TABLET (FP) PO SCH (22:43)
[2023-08-31] MEDS: METHOCARBAMOL 500 MG TABLET PO PRN (22:45)
[2023-09-01] MEDS: PRENATAL VITAMINS W/ FOLIC ACID TABLET (FP) PO SCH (10:32)
[2023-09-01] MEDS: MAGNESIUM HYDROX 2400MG/30ML ORAL SUSPENSION 30 ML CUP PO PRN (10:58)
[2023-09-01] MEDS: IBUPROFEN 600 MG TABLET (FP) PO PRN (11:00)
[2023-09-01 12:01] LABS: HEMATOCRIT 38.4 % (32.4-45.2); MCH 26.2 pg (25.7-33.7); MCHC 31.3 g/dl (32.0-36.0); MEAN CELL VOLUME 83.7 fl (80-96); MEAN PLT VOLUME 8.6 fl (7.5-11.1); PLATELET COUNT 355 10^3/uL (134-434); RBC 4.59 M/mm3 (3.60-5.2); RDW 15.9 % (11.6-15.6); WHITE BLOOD COUNT 5.2 K/mm3 (4.0-10.0)
[2023-09-01 12:03] LABS: CHLORIDE 106 mmol/L (98-107); POTASSIUM 4.6 mmol/L (3.5-5.1); SODIUM 137 mmol/L (136-145)
[2023-09-01 12:23] LABS: BLOOD UREA NITROGEN 7.4 mg/dL (7-18); GLUCOSE,RANDOM 85 mg/dL (74-106)
[2023-09-01 12:25] LABS: CALCIUM 8.9 mg/dL (8.5-10.1)
[2023-09-01 12:26] LABS: ALBUMIN 3.2 g/dl (3.4-5.0); ANION GAP 4 mmol/L (4-13); CO2 28 mmol/L (21-32)
[2023-09-01 12:29] LABS: CREATININE 0.7 mg/dL (0.55-1.3); SGOT/AST 11 U/L (15-37); SGPT/ALT 17 U/L (13-61)
[2023-09-01 12:30] LABS: ALK PHOS 67 U/L (45-117); BILIRUBIN,TOTAL 0.2 mg/dL (0.2-1)
[2023-09-01 12:31] LABS: TOT PROT 6.7 g/dl (6.4-8.2)
[2023-09-01] MEDS: ARTIFICIAL TEARS OPHTHALMIC DROPS OU SCH (22:25)
[2023-09-01] MEDS: ACETAMINOPHEN 325 MG TABLET (FP) PO PRN (22:27)
[2023-09-02] MEDS: chlordiazePOXIDE HCL 25 MG CAPSULE PO SCH (05:42)
[2023-09-02] MEDS: LACTULOSE 20 GM/30 ML UDC (FOR ORAL USE ONLY) PO SCH (17:57)
[2023-09-03] MEDS ORDERED: chlordiazePOXIDE HCL 10 MG CAPSULE PO PRN
[2023-09-03] MEDS: POLYETHYLENE GLYCOL (HEALTHYLAX) 3350 17 GM PACKET PO PRN (05:59)
[2023-09-03] MEDS: chlordiazePOXIDE HCL 10 MG CAPSULE PO SCH (06:00)
[2023-09-03] MEDS: MINERAL OIL ENEMA 133 ML ENEMA RC ONE (11:52)
[2023-09-04] MEDS: chlordiazePOXIDE HCL 10 MG CAPSULE PO SCH (06:00)
[2023-09-04 10:02] VITALS: TEMP 97.8
[2023-09-04 20:00] VITALS: BP 124/89; PULSE 109; RESP 18
[2023-09-05] MEDS ORDERED: chlordiazePOXIDE HCL 10 MG CAPSULE PO ONE (05:00)
== END 2023-09-04 18:50 | disposition home or self-care (01) | DRG 774 ==
LOC: YASAS 09:24 → Y6N 11:27
PROVIDERS: ADMIT Allergy & Immunology; ATTEND Surgery
PROC: HZ2ZZZZ Detoxification Services for Substance Abuse Treatment (ICD-10-PCS; principal; 2023-08-31)
DX: F10.230 Alcohol dependence with withdrawal, uncomplicated (principal); F14.10 Cocaine abuse, uncomplicated; F12.10 Cannabis abuse, uncomplicated; F17.210 Nicotine dependence, cigarettes, uncomplicated; F25.9 Schizoaffective disorder, unspecified; Z86.39 Personal history of other endocrine, nutritional and metabolic disease
CPT/HCPCS: 36415; 71046-TC-FY; 80053; 80307; 81025; 82140; 82962; 85027; 86780; 93005; 93010

== ENCOUNTER 2024-06-08 08:43 | Inpatient (IN) | payer OTHER ==
[2024-06-08 09:03] VITALS: BMI 29.7
[2024-06-08] MEDS ORDERED: ONDANSETRON *ODT* 4 MG TABLET SL PRN (10:07)
[2024-06-08] MEDS ORDERED: hydrOXYzine PAMOATE 25 MG CAPSULE (FP) PO PRN (10:07)
[2024-06-08] MEDS ORDERED: NICOTINE POLACRILEX 2 MG GUM BUC PRN (10:07)
[2024-06-08] MEDS ORDERED: NALOXONE (NARCAN) HCL 4 MG/0.1 ML SPRAY NS PRN (10:07)
[2024-06-08] MEDS ORDERED: DICYCLOMINE HCL 10 MG CAPSULE PO PRN (10:07)
[2024-06-08] MEDS ORDERED: POLYETHYLENE GLYCOL (HEALTHYLAX) 3350 17 GM PACKET PO PRN (10:07)
[2024-06-08] MEDS ORDERED: MAG HYDROX/AL HYDROX/SIMETH 30 ML UNIT-DOSE CUP PO PRN (10:07)
[2024-06-08] MEDS ORDERED: MAGNESIUM HYDROX 2400MG/30ML ORAL SUSPENSION 30 ML CUP PO PRN (10:07)
[2024-06-08] MEDS ORDERED: IBUPROFEN 600 MG TABLET (FP) PO PRN (10:07)
[2024-06-08] MEDS ORDERED: IBUPROFEN 400 MG TABLET (FP) PO PRN (10:07)
[2024-06-08] MEDS ORDERED: BISMUTH SUBSALICYLATE 524 MG/30 ML PO PRN (10:07)
[2024-06-08] MEDS ORDERED: guaiFENesin 600 MG TABLET.ER (FP) PO PRN (10:07)
[2024-06-08] MEDS ORDERED: BENZONATATE 200 MG CAPSULE PO PRN (10:07)
[2024-06-08] MEDS ORDERED: ACETAMINOPHEN 325 MG TABLET (FP) PO PRN (10:07)
[2024-06-08] MEDS ORDERED: BENZOCAINE/MENTHOL (CHLORASEPTIC ) LOZENGE MM PRN (10:07)
[2024-06-08] MEDS ORDERED: LOPERAMIDE HCL 2 MG CAPSULE PO PRN (10:07)
[2024-06-08] MEDS ORDERED: ALBUTEROL SO4 HFA INHALER IH PRN (11:09)
[2024-06-08] MEDS: INSULIN (NOVOLOG) ASPART 100 UNITS/ML 10ML VIAL SQ SCH (16:33)
[2024-06-08] MEDS: MELATONIN 5 MG TABLETS PO SCH (22:22)
[2024-06-08] MEDS: METHOCARBAMOL 500 MG TABLET PO PRN (22:22)
[2024-06-08] MEDS: THIAMINE 100 MG TABLET PO SCH (22:23)
[2024-06-08] MEDS: QUEtiapine FUMARATE 200 MG TABLET PO SCH (22:23)
[2024-06-09] MEDS: PRENATAL VITAMINS W/ FOLIC ACID TABLET (FP) PO SCH (09:45)
[2024-06-09] MEDS: NICOTINE 14 MG/24 HOURS TOPICAL PATCH TD SCH (09:46)
[2024-06-09 11:32] LABS: MCH 26.4 pg (25.7-33.7); MCHC 30.7 g/dl (32.0-36.0); MEAN CELL VOLUME 86.2 fl (80-96); MEAN PLT VOLUME 8.7 fl (7.5-11.1); PLATELET COUNT 216 10^3/uL (134-434); RBC 4.17 M/mm3 (3.60-5.2); WHITE BLOOD COUNT 3.6 K/mm3 (4.0-10.0)
[2024-06-09] MEDS: LISINOPRIL 10 MG TABLET PO SCH (14:24)
[2024-06-09] MEDS: METFORMIN HCL PO SCH (14:37)
[2024-06-09] MEDS: metFORMIN HCL 500 MG TABLET (FP) PO SCH (15:00)
[2024-06-09 16:28] LABS: POTASSIUM 4.3 mmol/L (3.5-5.1)
[2024-06-09 16:32] LABS: CALCIUM 8.5 mg/dL (8.5-10.1)
[2024-06-09 16:33] LABS: ALBUMIN 3.2 g/dl (3.4-5.0); BLOOD UREA NITROGEN 14.4 mg/dL (7-18)
[2024-06-09 16:36] LABS: BILIRUBIN,TOTAL 0.1 mg/dL (0.2-1); CREATININE 0.6 mg/dL (0.55-1.3)
[2024-06-09 16:38] LABS: TOT PROT 5.9 g/dl (6.4-8.2)
[2024-06-10 09:25] VITALS: BP 148/90; PULSE 86; RESP 18; TEMP 96.9
[2024-06-10] MEDS: NALOXONE (NYS OPIOID OVERDOSE PROGRAM) 4 MG/0.1 ML SPRAY NS SCH (09:31)
== END 2024-06-10 11:47 | disposition home or self-care (01) | DRG 774 ==
LOC: YASAS 08:43 → Y6N 10:37
PROVIDERS: ADMIT Allergy & Immunology; ATTEND Surgery
PROC: HZ2ZZZZ Detoxification Services for Substance Abuse Treatment (ICD-10-PCS; principal; 2024-06-08)
DX: F10.230 Alcohol dependence with withdrawal, uncomplicated (principal); F14.20 Cocaine dependence, uncomplicated; F17.210 Nicotine dependence, cigarettes, uncomplicated; F25.9 Schizoaffective disorder, unspecified; I10 Essential (primary) hypertension; J45.909 Unspecified asthma, uncomplicated; E11.9 Type 2 diabetes mellitus without complications; Z79.84 Long term (current) use of oral hypoglycemic drugs; Z79.85 Long-term (current) use of injectable non-insulin antidiabetic drugs; R76.11 Nonspecific reaction to tuberculin skin test without active tuberculosis
CPT/HCPCS: 36415; 80053; 80305; 80307; 81025; 82962; 85027; 86780; 93005; 93010

== ENCOUNTER 2024-07-18 18:12 | Inpatient (IN) | payer OTHER ==
[2024-07-18 18:44] VITALS: BMI 29.0
[2024-07-18] MEDS ORDERED: guaiFENesin 600 MG TABLET.ER (FP) PO PRN (19:15)
[2024-07-18] MEDS ORDERED: BENZONATATE 200 MG CAPSULE PO PRN (19:15)
[2024-07-18] MEDS ORDERED: NICOTINE POLACRILEX 2 MG GUM BUC PRN (19:15)
[2024-07-18] MEDS ORDERED: MAGNESIUM HYDROX 2400MG/30ML ORAL SUSPENSION 30 ML CUP PO PRN (19:15)
[2024-07-18] MEDS ORDERED: LOPERAMIDE HCL 2 MG CAPSULE PO PRN (19:15)
[2024-07-18] MEDS ORDERED: NICOTINE POLACRILEX 2 MG LOZENGE BC PRN (19:15)
[2024-07-18] MEDS ORDERED: BENZOCAINE/MENTHOL (CHLORASEPTIC ) LOZENGE MM PRN (19:15)
[2024-07-18] MEDS ORDERED: IBUPROFEN 400 MG TABLET (FP) PO PRN (19:15)
[2024-07-18] MEDS ORDERED: IBUPROFEN 600 MG TABLET (FP) PO PRN (19:15)
[2024-07-18] MEDS ORDERED: NALOXONE (NARCAN) HCL 4 MG/0.1 ML SPRAY NS PRN (19:15)
[2024-07-18] MEDS ORDERED: MAG HYDROX/AL HYDROX/SIMETH 30 ML UNIT-DOSE CUP PO PRN (19:15)
[2024-07-18] MEDS ORDERED: POLYETHYLENE GLYCOL (HEALTHYLAX) 3350 17 GM PACKET PO PRN (19:15)
[2024-07-18] MEDS ORDERED: ALBUTEROL SO4 HFA INHALER IH PRN (20:06)
[2024-07-18] MEDS: MELATONIN 5 MG TABLETS PO SCH (21:06)
[2024-07-18] MEDS: propRANOLol HCL 10 MG TABLET PO ONE (21:06)
[2024-07-18] MEDS: THIAMINE 100 MG TABLET PO SCH (21:06)
[2024-07-18] MEDS: ACETAMINOPHEN 325 MG TABLET (FP) PO PRN (23:25)
[2024-07-19 05:45] VITALS: RESP 16
[2024-07-19 06:42] LABS: EPI CELLS 35 /uL (0-25.1); HYALINE CASTS 3 /uL (0-3.1); PH,URINE 5.5 (5.0-8.0); URINE APPEARANCE TURBID; URINE BACTERIA 485 /uL (0-1359); URINE BILIRUBIN NEGATIVE (NEGATIVE); URINE COLOR YELLOW; URINE GLUCOSE (UA) NEGATIVE (NEGATIVE); URINE KETONE TRACE (NEGATIVE); URINE LEUK ESTERASE 2+ (NEGATIVE); URINE NITRITE NEGATIVE (NEGATIVE); URINE PROTEIN NEGATIVE (NEGATIVE); URINE RBC 21 /uL (0-23.9); URINE UROBILINOGEN 0.2 mg/dL (0.2-1.0); URINE WBC 71 /uL (0-25.8)
[2024-07-19] MEDS: PRENATAL VITAMINS W/ FOLIC ACID TABLET (FP) PO SCH (10:10)
[2024-07-19] MEDS: LISINOPRIL 10 MG TABLET PO SCH (10:10)
[2024-07-19 12:28] LABS: HEMATOCRIT 37.4 % (32.4-45.2); MCHC 32.2 g/dl (32.0-36.0); MEAN PLT VOLUME 7.5 fl (7.5-11.1); PLATELET COUNT 308 10^3/uL (134-434); RBC 4.45 M/mm3 (3.60-5.2); RDW 14.9 % (11.6-15.6); WHITE BLOOD COUNT 4.7 K/mm3 (4.0-10.0)
[2024-07-19 12:33] LABS: POTASSIUM 4.3 mmol/L (3.5-5.1)
[2024-07-19 12:48] LABS: ALBUMIN 3.6 g/dl (3.4-5.0); BLOOD UREA NITROGEN 12.8 mg/dL (7-18); CALCIUM 8.7 mg/dL (8.5-10.1)
[2024-07-19 12:50] LABS: BILIRUBIN,TOTAL 0.3 mg/dL (0.2-1)
[2024-07-19 12:51] LABS: CREATININE 0.6 mg/dL (0.55-1.3)
[2024-07-19] MEDS: QUEtiapine FUMARATE 100 MG TABLET (FP) PO SCH (15:29)
[2024-07-19] MEDS: QUEtiapine FUMARATE 200 MG TABLET PO SCH (22:40)
[2024-07-20 06:27] VITALS: BP 107/70; PULSE 90; TEMP 98
[2024-07-20] MEDS: QUEtiapine FUMARATE 200 MG TABLET PO SCH (10:53)
[2024-07-20] MEDS: NITROFURANTOIN MONOHYD/M-CRYST 100 MG CAPSULE PO SCH (14:50)
== END 2024-07-20 15:53 | disposition short-term general hospital (02) | DRG 772 ==
LOC: YASAS 18:12 → Y3NR 19:19
PROVIDERS: ADMIT Psychiatry & Neurology Pain Medicine; ATTEND Psychiatry & Neurology Pain Medicine
PROC: HZ42ZZZ Group Counseling for Substance Abuse Treatment, Cognitive-Behavioral (ICD-10-PCS; principal; 2024-07-18)
DX: F14.20 Cocaine dependence, uncomplicated (principal); F25.9 Schizoaffective disorder, unspecified; I10 Essential (primary) hypertension; J45.909 Unspecified asthma, uncomplicated; E11.9 Type 2 diabetes mellitus without complications; Z79.84 Long term (current) use of oral hypoglycemic drugs; R76.11 Nonspecific reaction to tuberculin skin test without active tuberculosis; Z87.891 Personal history of nicotine dependence; Z56.0 Unemployment, unspecified; Z59.00 Homelessness unspecified
CPT/HCPCS: 36415; 80053; 80305; 81003; 81025; 82962; 85027; 87811